=== PATIENT | male | born 1980 | race Caucasian/White ===

== ENCOUNTER 2023-04-02 11:02 | Emergency (ER) | payer OTHER ==
[2023-04-02 11:09] VITALS: RESP 18; TEMP 98.5
[2023-04-02] MEDS ORDERED: IPRATROPIUM-ALBUTEROL 3 ML NEB INHALATION STA (11:10)
--- NOTE | 2023-04-02 11:17 | ED ---
SOB HPI - General Chief Complaint: Shortness of Breath Stated Complaint: SOB Time Seen by Provider: 04/02/23 11:06 Source: patient, EMS, RN notes reviewed Mode of arrival: EMS Limitations: no limitations - History of Present Illness Initial Comments: This is a 42-year-old male who presents to the emergency department for shortness of breath. Patient is currently a resident at [facility] for alcohol abuse. States that symptoms started 10 days ago. He was treated with a Z-Maged and steroids for 5 days. He completed this course of medication about 4-5 days ago. States that he felt better initially after finishing the medications, however symptoms then returned. They have checked him for Covid several times, and all tests have been negative. He has also been receiving regular breathing treatments over the last 10 days, which have not been effective. Patient currently wearing supplemental oxygen. States that his oxygen saturation was around 89% on room air at [facility] after the breathing treatment. Denies any known sick contacts, but states that it is possible since he is around many other residents at [facility]. Denies any history of asthma or COPD. He is a smoker. Denies any fevers, chills, sore throat, chest pain, palpitations, abdominal pain, nausea, vomiting, diarrhea, back pain, or headaches. MD Complaint: shortness of breath, cough Onset/Timin -: days(s) - Related Data Home Medications Medication Instructions Recorded Confirmed Acetaminophen Tab [Tylenol] 650 mg PO Q4H PRN 04/02/23 04/02/23 Albuterol Inhaler [Ventolin Hfa 1 - 2 puff INHALATION RT-Q4H PRN 04/02/2302/18 Inhaler] Albuterol Nebulized [Ventolin 2.5 mg INHALATION RT-QID PRN 04/02/23 04/02/23 Nebulized] Calcium/Magnesium/Zinc/Vitamin D3 1 tab PO TID PRN 04/02/23 04/02/23 Chlorpheniramine Maleate 4 mg PO Q4H PRN 04/02/23 04/02/23 [Chlor-Trimeton] Hyoscyamine Sulfate [Levsin-Sl] 0.125 mg SL QID PRN 04/02/23 04/02/23 Ibuprofen [Motrin Ib] 600 mg PO Q6H PRN 04/02/23 04/02/23 Mag Hydrox/Aluminum Hyd/Simeth 30 ml PO Q4H PRN 04/02/23 04/02/23 [Mylanta Maximum Strength Liq] Multivitamins, Thera [Multivitamin 1 tab PO DAILY 04/02/23 04/02/23 (formulary)] Naltrexone Microspheres [VivitroL] 380 mg IM Q28D 04/02/23 04/02/23 Thiamine [Vitamin B-1] 100 mg PO DAILY 04/02/23 04/02/23 busPIRone HCl [Buspar] 10 mg PO TID 04/02/23 04/02/23 cloNIDine HCL 0.1 - 0.3 mg PO Q4H PRN 04/02/23 04/02/23 guaiFENesin [guaiFENesin Oral 200 mg PO Q4H PRN 04/02/23 04/02/23 Solution] ondansetron HCL [Ondansetron HCl] 8 mg PO Q6H PRN 04/02/23 04/02/23 traZODone HCL [Desyrel] 50 - 150 mg PO HS PRN 04/02/23 04/02/23 Previous Rx's Medication Instructions Recorded Amoxic-Pot Clav 875-125Mg 1 tab PO Q12HR 7 Days #14 tab 04/02/23 [Augmentin 875-125] Doxycycline [Vibramycin] 100 mg PO BID 5 Days #10 capsule 04/02/23 predniSONE 50 mg PO DAILY 5 Days #5 tablet 04/02/23 Allergies Allergy/AdvReac Type Severity Reaction Status Date / Time No Known Allergies Allergy Verified 04/02/23 12:49 Review of Systems ROS Statement: Those systems with pertinent positive or pertinent negative responses have been documented in the HPI. ROS Other: All systems not noted in ROS Statement are negative. Past Medical History Additional Past Medical History / Comment(s): asthma History of Any Multi-Drug Resistant Organisms: None Reported Additional Past Surgical History / Comment(s): wrist surgery Smoking Status: Current every day smoker Past Alcohol Use History: Occasional Past Drug Use History: None Reported General Exam Limitations: no limitations General appearance: alert, in no apparent distress Head exam: Present: atraumatic, normocephalic, normal inspection Respiratory exam: Present: wheezes, rales Cardiovascular Exam: Present: regular rate, normal rhythm, normal heart sounds. Absent: systolic murmur, diastolic murmur, rubs, gallop, clicks Neurological exam: Present: alert, oriented X3, CN II-XII intact Psychiatric exam: Present: normal affect, normal mood Skin exam: Present: warm, dry, intact, normal color. Absent: rash Course Vital Signs 04/02/23 04/02/23 04/02/23 11:05 11:10 12:29 Temperature 98.5 F Pulse Rate 73 74 Respiratory 18 18 18 Rate Blood Pressure 111/66 O2 Sat by Pulse 93 L Oximetry 04/02/23 04/02/23 12:35 13:26 Temperature Pulse Rate 78 75 Respiratory 18 18 Rate Blood Pressure 100/61 O2 Sat by Pulse 94 L Oximetry Medical Decision Making - Medical Decision Making This is a 42-year-old male who presents to the emergency department for coughing and shortness of breath. Was pt. sent in by a medical professional or institution? @ -[facility] Did you speak to anyone other than the patient for history? @ -No Did you review nursing and triage notes? @ -Yes, and I agree, it is accurate with regards to the patient's symptoms. Were old charts reviewed? @ -No Differential Diagnosis? @ -Differential Dyspnea: Coronary syndrome, arrhythmia, tamponade, asthma, COPD, pulmonary embolism, pneumonia, pneumothorax, pulmonary effusion, anaphylaxis, diabetic ketoacidosis, flailed chest, pulmonary contusion, diaphragmatic rupture, anemia, neuromuscular, this is not meant to be an all-inclusive list. EKG interpreted by me (3pts min.)? @ -EKG interpreted by me demonstrating the following: Sinus rhythm. Ventricular rate 80 beats per minute, MA interval 160 ms, QRS duration 93 ms, QTC 422 ms. X-rays interpreted by me (1pt min.)? @ -Chest x-ray obtained. My interpretation identifies a left lower lobe infiltrate. CT interpreted by me (1pt min.)? @ -Not obtained U/S interpreted by me (1pt. min.)? @ -Not obtained What testing was considered but not performed? (CT, X-rays, U/S, labs)? Why? @ -None What meds were considered but not given? Why? @ -None Did you discuss the management of the patient with other professionals? @ -No Did you reconcile home meds? @ -No Was smoking cessation discussed for >3mins.? @ -No Was critical care preformed (if so, how long)? @ -No Were there social determinants of health that impacted care today? How? (Homelessness, low income, unemployed, alcoholism, drug addiction, transportation, low edu. Level, literacy, decrease access to med. care, penitentiary, rehab)? @ -Yes, alcoholism, contributing to overall worsening of health status. Patient is also in rehab, increasing his risk for sick contacts. Was there de-escalation of care discussed even if they declined? (Discuss DNR or withdrawal of care, Hospice)? @ -No What co-morbidities impacted this encounter? (DM, HTN, Smoking, COPD, CAD, Cancer, CVA, Hep., AIDS, mental health diagnosis, sleep apnea, morbid obesity)? @ -Asthma, alcoholism Was patient admitted / discharged? @ -Discharged. Lab work obtained and found to be nonactionable. Covid, influenza, and RSV testing were negative. Chest x-ray obtained revealing a lingular infiltrate suggestive of pneumonia. Patient received a DuoNeb breathing treatment. Afterwards, I took off the supplemental oxygen, and the patient maintained an oxygen saturation of 93-96% on room air. I did offer admission for outpatient failure, however the patient declined and would like to be discharged back to [facility]. Combo therapy as recommended for community-acquired pneumonia prescribed, with Augmentin and doxycycline. Additional 5 day course of prednisone prescribed as well. Advised to continue with DuoNeb treatments and his albuterol inhaler at [facility]. Patient discharged in stable condition back to [facility]. Undiagnosed new problem with uncertain prognosis? @ -None Drug Therapy requiring intensive monitoring for toxicity (Heparin, Nitro, Insulin, Cardizem)? @ -None Were any procedures done? @ -None Diagnosis/symptom? @ -Pneumonia Acute, or Chronic, or Acute on Chronic? @ -Acute Uncomplicated (without systemic symptoms) or Complicated (systemic symptoms)? @ -Uncomplicated Side effects of treatment? @ -None Exacerbation, Progression, or Severe Exacerbation] @ -Not applicable Poses a threat to life or bodily function? @ -No Return precautions reviewed in depth, the patient is instructed to return to the emergency department with any new, worsening, or concerning symptoms. Patient verbalized understanding. This case was discussed in detail with the attending ED physician, Dr. Baez. Presentation, findings, and treatment plan discussed in detail as well. - Lab Data Result diagrams: 04/02/23 11:19 04/02/23 11:19 Lab Results 04/02/23 04/02/23 04/02/23 Range/Units 11:19 11:19 11:19 WBC 7.3 (3.8-10.6) k/uL RBC 4.76 (4.30-5.90) m/uL Hgb 14.1 (13.0-17.5) gm/dL Hct 43.1 (39.0-53.0) % MCV 90.5 (80.0-100.0) fL MCH 29.6 (25.0-35.0) pg MCHC 32.7 (31.0-37.0) g/dL RDW 15.4 (11.5-15.5) % Plt Count 268 (150-450) k/uL MPV 6.9 Neutrophils % E[employer] THRO[employer] SPECIALIST Neutrophils % (Manual) 71 % Band Neuts % (Manual) 1 % Lymphocytes % E[employer] AND THROAT SPECIALIST Lymphocytes % (Manual) 10 % Monocytes % E[employer] AND THROAT SPECIALIST Monocytes % (Manual) 17 % Eosinophils % E[employer] AND THROAT SPECIALIST Eosinophils % (Manual) 1 % Basophils % E[employer] AND THROAT SPECIALIST Basophils % (Manual) 1 % Metamyelocytes % 1 % Neutrophils # E[employer] AND THROAT SPECIALIST Neutrophils # (Manual) 5.20 (1.3-7.7) k/uL Lymphocytes # E[employer] AND THROAT SPECIALIST Lymphocytes # (Manual) 0.73 L (1.0-4.8) k/uL Monocytes # E[employer] AND THROAT SPECIALIST Monocytes # (Manual) 1.24 H (0-1.0) k/uL Eosinophils # E[employer] AND THROAT SPECIALIST Eosinophils # (Manual) 0.07 (0-0.7) k/uL Basophils # E[employer] AND THRO[employer] SPECIALIST Basophils # (Manual) 0.07 (0-0.2) k/uL Metamyelocytes # (Man) 0.07 H (0) k/uL Nucleated RBCs 0 (0-0) /100 WBC Manual Slide Review Performed RBC Morphology Normal PT 10.3 (9.0-12.0) sec INR 1.0 (<1.2) APTT 27.0 (22.0-30.0) sec D-Dimer 0.42 (<0.60) mg/L FEU Sodium 136 L (137-145) mmol/L Potassium 3.9 (3.5-5.1) mmol/L Chloride 106 (98-107) mmol/L Carbon Dioxide 22 (22-30) mmol/L Anion Gap 8 mmol/L BUN 9 (9-20) mg/dL Creatinine 0.76 (0.66-1.25) mg/dL Est GFR (CKD-EPI)AfAm >90 (>60 ml/min/1.73 sqM) Est GFR (CKD-EPI)NonAf >90 (>60 ml/min/1.73 sqM) Glucose 98 (74-99) mg/dL Plasma Lactic Acid Bonilla (0.7-2.0) mmol/L Calcium 8.6 (8.4-10.2) mg/dL Total Bilirubin 0.4 (0.2-1.3) mg/dL AST 70 H (17-59) U/L ALT 138 H (4-49) U/L Alkaline Phosphatase 443 H (38-126) U/L Troponin I (0.000-0.034) ng/mL NT-Pro-B Natriuret Pep pg/mL Total Protein 6.8 (6.3-8.2) g/dL Albumin 3.8 (3.5-5.0) g/dL Influenza Type A (PCR) (Not Detectd) Influenza Type B (PCR) (Not Detectd) RSV (PCR) (Not Detectd) SARS-CoV-2 (PCR) (Not Detectd) 04/02/23 04/02/23 04/02/23 Range/Units 11:19 11:19 11:19 WBC (3.8-10.6) k/uL RBC (4.30-5.90) m/uL Hgb (13.0-17.5) gm/dL Hct (39.0-53.0) % MCV (80.0-100.0) fL MCH (25.0-35.0) pg MCHC (31.0-37.0) g/dL RDW (11.5-15.5) % Plt Count (150-450) k/uL MPV Neutrophils % Neutrophils % (Manual) % Band Neuts % (Manual) % Lymphocytes % Lymphocytes % (Manual) % Monocytes % Monocytes % (Manual) % Eosinophils % Eosinophils % (Manual) % Basophils % Basophils % (Manual) % Metamyelocytes % % Neutrophils # Neutrophils # (Manual) (1.3-7.7) k/uL Lymphocytes # Lymphocytes # (Manual) (1.0-4.8) k/uL Monocytes # Monocytes # (Manual) (0-1.0) k/uL Eosinophils # Eosinophils # (Manual) (0-0.7) k/uL Basophils # Basophils # (Manual) (0-0.2) k/uL Metamyelocytes # (Man) (0) k/uL Nucleated RBCs (0-0) /100 WBC Manual Slide Review RBC Morphology PT (9.0-12.0) sec INR (<1.2) APTT (22.0-30.0) sec D-Dimer (<0.60) mg/L FEU Sodium (137-145) mmol/L Potassium (3.5-5.1) mmol/L Chloride (98-107) mmol/L Carbon Dioxide (22-30) mmol/L Anion Gap mmol/L BUN (9-20) mg/dL Creatinine (0.66-1.25) mg/dL Est GFR (CKD-EPI)AfAm (>60 ml/min/1.73 sqM) Est GFR (CKD-EPI)NonAf (>60 ml/min/1.73 sqM) Glucose (74-99) mg/dL Plasma Lactic Acid Bonilla 0.7 (0.7-2.0) mmol/L Calcium (8.4-10.2) mg/dL Total Bilirubin (0.2-1.3) mg/dL AST (17-59) U/L ALT (4-49) U/L Alkaline Phosphatase (38-126) U/L Troponin I <0.012 (0.000-0.034) ng/mL NT-Pro-B Natriuret Pep pg/mL Total Protein (6.3-8.2) g/dL Albumin (3.5-5.0) g/dL Influenza Type A (PCR) Not Detected (Not Detectd) Influenza Type B (PCR) Not Detected (Not Detectd) RSV (PCR) Not Detected (Not Detectd) SARS-CoV-2 (PCR) Not Detected (Not Detectd) 04/02/23 Range/Units 11:19 WBC (3.8-10.6) k/uL RBC (4.30-5.90) m/uL Hgb (13.0-17.5) gm/dL Hct (39.0-53.0) % MCV (80.0-100.0) fL MCH (25.0-35.0) pg MCHC (31.0-37.0) g/dL RDW (11.5-15.5) % Plt Count (150-450) k/uL MPV Neutrophils % Neutrophils % (Manual) % Band Neuts % (Manual) % Lymphocytes % Lymphocytes % (Manual) % Monocytes % Monocytes % (Manual) % Eosinophils % Eosinophils % (Manual) % Basophils % Basophils % (Manual) % Metamyelocytes % % Neutrophils # Neutrophils # (Manual) (1.3-7.7) k/uL Lymphocytes # Lymphocytes # (Manual) (1.0-4.8) k/uL Monocytes # Monocytes # (Manual) (0-1.0) k/uL Eosinophils # Eosinophils # (Manual) (0-0.7) k/uL Basophils # Basophils # (Manual) (0-0.2) k/uL Metamyelocytes # (Man) (0) k/uL Nucleated RBCs (0-0) /100 WBC Manual Slide Review RBC Morphology PT (9.0-12.0) sec INR (<1.2) APTT (22.0-30.0) sec D-Dimer (<0.60) mg/L FEU Sodium (137-145) mmol/L Potassium (3.5-5.1) mmol/L Chloride (98-107) mmol/L Carbon Dioxide (22-30) mmol/L Anion Gap mmol/L BUN (9-20) mg/dL Creatinine (0.66-1.25) mg/dL Est GFR (CKD-EPI)AfAm (>60 ml/min/1.73 sqM) Est GFR (CKD-EPI)NonAf (>60 ml/min/1.73 sqM) Glucose (74-99) mg/dL Plasma Lactic Acid Bonilla (0.7-2.0) mmol/L Calcium (8.4-10.2) mg/dL Total Bilirubin (0.2-1.3) mg/dL AST (17-59) U/L ALT (4-49) U/L Alkaline Phosphatase (38-126) U/L Troponin I (0.000-0.034) ng/mL NT-Pro-B Natriuret Pep <20 pg/mL Total Protein (6.3-8.2) g/dL Albumin (3.5-5.0) g/dL Influenza Type A (PCR) (Not Detectd) Influenza Type B (PCR) (Not Detectd) RSV (PCR) (Not Detectd) SARS-CoV-2 (PCR) (Not Detectd) - Radiology Data Radiology results: report reviewed, image reviewed Disposition Clinical Impression: Lingular pneumonia Disposition: HOME SELF-CARE Instructions (If sedation given, give patient instructions): Community Acquired Pneumonia (ED) Additional Instructions: Return to the emergency department with any new, worsening, or concerning symptoms. Take the prednisone daily for 5 days. You will take the Augmentin as prescribed for 7 days and doxycycline as prescribed for 5 days. Continue to use albuterol and DuoNeb treatments at [facility]. Follow up with your primary care provider in 1-2 days. Prescriptions: Amoxic-Pot Clav 875-125Mg [Augmentin 875-125] 1 tab PO Q12HR 7 Days #14 tab predniSONE 50 mg PO DAILY 5 Days #5 tablet Doxycycline [Vibramycin] 100 mg PO BID 5 Days #10 capsule Is patient prescribed a controlled substance at d/c from ED?: No Referrals: None,Stated [Primary Care Provider] - 1-2 days
[2023-04-02 11:51] LABS: HCT 43.1 % (39.0-53.0); HGB 14.1 gm/dL (13.0-17.5); MCH 29.6 pg (25.0-35.0); MCHC 32.7 g/dL (31.0-37.0); MCV 90.5 fL (80.0-100.0); Mean Platelet Volume 6.9; Platelet Count 268 k/uL (150-450); RBC 4.76 m/uL (4.30-5.90); RDW 15.4 % (11.5-15.5); WBC 7.3 k/uL (3.8-10.6)
[2023-04-02 11:57] LABS: ALT 138 U/L (4-49); AST 70 U/L (17-59); African American GFR (CKD) >90 (>60 ml/min/1.73 sqM); Albumin 3.8 g/dL (3.5-5.0); Alkaline Phosphatase 443 U/L (38-126); Anion Gap 8 mmol/L; Blood Urea Nitrogen 9 mg/dL (9-20); Calcium 8.6 mg/dL (8.4-10.2); Carbon Dioxide 22 mmol/L (22-30); Chloride 106 mmol/L (98-107); Glucose 98 mg/dL (74-99); Non-African American GFR(CKD) >90 (>60 ml/min/1.73 sqM); Potassium 3.9 mmol/L (3.5-5.1); Sodium 136 mmol/L (137-145); Total Bilirubin 0.4 mg/dL (0.2-1.3); Total Protein 6.8 g/dL (6.3-8.2)
[2023-04-02 12:00] LABS: Prothrombin Time 10.3 sec (9.0-12.0)
--- NOTE | 2023-04-02 12:04 | XR ---
EXAMINATION TYPE: XR chest 2V DATE OF EXAM: 04/02/2023 COMPARISON: NONE HISTORY: Chest pain TECHNIQUE: Frontal and lateral views of the chest are obtained. FINDINGS: There is lingular infiltrate noted. Correlate for pneumonia. No evidence for pneumothorax. No pleural effusion. The cardiac silhouette size is within normal limits. The osseous structures are grossly intact. IMPRESSION: 1. There is lingular infiltrate noted. Correlate for pneumonia.
[2023-04-02 12:54] LABS: Basophils # (M) 0.07 k/uL (0-0.2); Lymphocytes # (M) 0.73 k/uL (1.0-4.8); Neutrophils % (M) 71 %; Nucleated Red Blood Cells 0 /100 WBC (0-0)
[2023-04-02 12:56] LABS: Band Neutrophils % 1 %; Eosinophils # (M) 0.07 k/uL (0-0.7); Metamyelocytes # (M) 0.07 k/uL (0); Metamyelocytes % 1 %; Monocytes # (M) 1.24 k/uL (0-1.0); RBC Morphology Normal; Total Cells Counted 200
[2023-04-02 13:27] VITALS: BP 100/61; PULSE 75
== END 2023-04-02 13:26 | disposition home or self-care (01) ==
LOC: EC 11:02
DX: J18.8 Other pneumonia, unspecified organism (principal); J45.909 Unspecified asthma, uncomplicated; F17.200 Nicotine dependence, unspecified, uncomplicated; Z20.822 Contact with and (suspected) exposure to COVID-19; Z79.899 Other long term (current) drug therapy
CPT/HCPCS: 36415; 71046; 80053; 83605; 83880; 84484; 85025; 85379; 85610; 85730; 87636; 93005; 94640; 99285

== ENCOUNTER 2023-08-01 16:01 | Emergency (ER) | payer OTHER ==
--- NOTE | 2023-08-01 16:55 | ED ---
Abdominal Pain HPI - General Source: patient Mode of arrival: ambulatory Limitations: no limitations <Ritika Blakely - Last Filed: 08/01/23 16:54> - General Source: RN notes reviewed, old records reviewed - History of Present Illness MD Complaint: abdominal pain <Dar Barron - Last Filed: 08/01/23 21:05> - General Chief Complaint: Abdominal Pain Stated Complaint: abdo pain Time Seen by Provider: 08/01/23 16:54 - History of Present Illness Initial Comments: 42-year-old male presenting with chief complaint of left-sided upper abdominal pain ongoing for the last 3 days. Patient was seen at [facility] today and diagnosed with pancreatitis, however states that he did not want to accept that and came here. (Ritika Blakely) - Related Data Home Medications Medication Instructions Recorded Confirmed Acetaminophen Tab [Tylenol] 650 mg PO Q4H PRN 04/02/23 04/02/23 Albuterol Inhaler [Ventolin Hfa 1 - 2 puff INHALATION RT-Q4H PRN 04/02/23 04/02/23 Inhaler] Albuterol Nebulized [Ventolin 2.5 mg INHALATION RT-QID PRN 04/02/23 04/02/23 Nebulized] Calcium/Magnesium/Zinc/Vitamin D3 1 tab PO TID PRN 04/02/23 04/02/23 Chlorpheniramine Maleate 4 mg PO Q4H PRN 04/02/23 04/02/23 [Chlor-Trimeton] Hyoscyamine Sulfate [Levsin-Sl] 0.125 mg SL QID PRN 04/02/23 04/02/23 Ibuprofen [Motrin Ib] 600 mg PO Q6H PRN 04/02/23 04/02/23 Mag Hydrox/Aluminum Hyd/Simeth 30 ml PO Q4H PRN 04/02/23 04/02/23 [Mylanta Maximum Strength Liq] Multivitamins, Thera [Multivitamin 1 tab PO DAILY 04/02/23 04/02/23 (formulary)] Naltrexone Microspheres [VivitroL] 380 mg IM Q28D 04/02/23 04/02/23 Thiamine [Vitamin B-1] 100 mg PO DAILY 04/02/23 04/02/23 busPIRone HCl [Buspar] 10 mg PO TID 04/02/23 04/02/23 cloNIDine HCL 0.1 - 0.3 mg PO Q4H PRN 04/02/23 04/02/23 guaiFENesin [guaiFENesin Oral 200 mg PO Q4H PRN 04/02/23 04/02/23 Solution] ondansetron HCL [Ondansetron HCl] 8 mg PO Q6H PRN 04/02/23 04/02/23 traZODone HCL [Desyrel] 50 - 150 mg PO HS PRN 04/02/23 04/02/23 Previous Rx's Medication Instructions Recorded Amoxic-Pot Clav 875-125Mg 1 tab PO Q12HR 7 Days #14 tab 04/02/23 [Augmentin 875-125] Doxycycline [Vibramycin] 100 mg PO BID 5 Days #10 capsule 04/02/23 predniSONE 50 mg PO DAILY 5 Days #5 tablet 04/02/23 Allergies Allergy/AdvReac Type Severity Reaction Status Date / Time No Known Allergies Allergy Verified 08/01/23 16:49 Review of Systems ROS Other: All systems not noted in ROS Statement are negative. <Ritika Blakely - Last Filed: 08/01/23 16:54> ROS Other: All systems not noted in ROS Statement are negative. <Dar Barron - Last Filed: 08/01/23 21:05> ROS Statement: Those systems with pertinent positive or pertinent negative responses have been documented in the HPI. Past Medical History Additional Past Medical History / Comment(s): asthma History of Any Multi-Drug Resistant Organisms: None Reported Additional Past Surgical History / Comment(s): wrist surgery Past Psychological History: No Psychological Hx Reported Smoking Status: Current every day smoker Past Alcohol Use History: Occasional Past Drug Use History: None Reported <Ritika Blakely - Last Filed: 08/01/23 16:54> General Exam Limitations: no limitations <Ritika Blakely - Last Filed: 08/01/23 16:54> - General Exam Comments Initial Comments: Visual Physical Exam Vital signs reviewed General: Well-appearing, nontoxic, no acute distress. Head: Normocephalic, atraumatic Eyes: PERRLA, EOMI ENT: Airway patent Chest: Nonlabored breathing Skin: No visual rash, normal skin tone Neuro: Alert and oriented 3 Musculoskeletal: No gross abnormalities (Ritika Blakely) Course Vital Signs 08/01/23 08/01/23 16:46 20:10 Temperature 98.5 F Pulse Rate 106 H 73 Respiratory 18 20 Rate Blood Pressure 118/74 115/79 O2 Sat by Pulse 94 L 95 Oximetry Medical Decision Making - Lab Data Result diagrams: 08/01/23 17:23 08/01/23 17:23 <Dar Barron B - Last Filed: 08/01/23 21:05> - Lab Data Lab Results 08/01/23 08/01/23 Range/Units 17:23 17:23 WBC 4.8 (3.8-10.6) k/uL RBC 4.68 (4.30-5.90) m/uL Hgb 15.9 (13.0-17.5) gm/dL Hct 46.0 (39.0-53.0) % MCV 98.2 (80.0-100.0) fL MCH 33.9 (25.0-35.0) pg MCHC 34.5 (31.0-37.0) g/dL RDW 18.1 H (11.5-15.5) % Plt Count 155 (150-450) k/uL MPV 7.2 Neutrophils % 66 % Lymphocytes % 20 % Monocytes % 11 % Eosinophils % 1 % Basophils % 1 % Neutrophils # 3.2 (1.3-7.7) k/uL Lymphocytes # 1.0 (1.0-4.8) k/uL Monocytes # 0.5 (0-1.0) k/uL Eosinophils # 0.0 (0-0.7) k/uL Basophils # 0.0 (0-0.2) k/uL Anisocytosis Slight Macrocytosis Slight Sodium 145 (137-145) mmol/L Potassium 3.2 L (3.5-5.1) mmol/L Chloride 105 (98-107) mmol/L Carbon Dioxide 24 (22-30) mmol/L Anion Gap 16 mmol/L BUN 5 L (9-20) mg/dL Creatinine 0.66 (0.66-1.25) mg/dL Est GFR (CKD-EPI)AfAm >90 (>60 ml/min/1.73 sqM) Est GFR (CKD-EPI)NonAf >90 (>60 ml/min/1.73 sqM) Glucose 123 H (74-99) mg/dL Calcium 8.9 (8.4-10.2) mg/dL Total Bilirubin 0.7 (0.2-1.3) mg/dL AST 41 (17-59) U/L ALT 16 (4-49) U/L Alkaline Phosphatase 224 H (38-126) U/L Total Protein 7.3 (6.3-8.2) g/dL Albumin 4.2 (3.5-5.0) g/dL Amylase 66 (30-110) U/L Lipase 189 (23-300) U/L Disposition <Ritika Blakely - Last Filed: 08/01/23 16:54> Is patient prescribed a controlled substance at d/c from ED?: No Time of Disposition: 19:30 <Dar Barron - Last Filed: 08/01/23 21:05> Clinical Impression: Abdominal pain Disposition: HOME SELF-CARE Condition: Good Instructions (If sedation given, give patient instructions): Abdominal Pain ( ED) Referrals: None,Stated [Primary Care Provider] - 1-2 days
[2023-08-01 17:03] VITALS: TEMP 98.5
[2023-08-01 17:47] LABS: Anisocytosis Slight; Basophils % (A) 1 %; Eosinophils % (A) 1 %; HGB 15.9 gm/dL (13.0-17.5); Lymphocytes % (A) 20 %; MCH 33.9 pg (25.0-35.0); MCHC 34.5 g/dL (31.0-37.0); MCV 98.2 fL (80.0-100.0); Macrocytosis Slight; Mean Platelet Volume 7.2; Monocytes # (A) 0.5 k/uL (0-1.0); Monocytes % (A) 11 %; Neutrophils # (A) 3.2 k/uL (1.3-7.7); Neutrophils % (A) 66 %; Platelet Count 155 k/uL (150-450); RBC 4.68 m/uL (4.30-5.90); RDW 18.1 % (11.5-15.5); WBC 4.8 k/uL (3.8-10.6)
[2023-08-01 17:57] LABS: ALT 16 U/L (4-49); AST 41 U/L (17-59); African American GFR (CKD) >90 (>60 ml/min/1.73 sqM); Albumin 4.2 g/dL (3.5-5.0); Alkaline Phosphatase 224 U/L (38-126); Amylase 66 U/L (30-110); Anion Gap 16 mmol/L; Blood Urea Nitrogen 5 mg/dL (9-20); Calcium 8.9 mg/dL (8.4-10.2); Carbon Dioxide 24 mmol/L (22-30); Chloride 105 mmol/L (98-107); Glucose 123 mg/dL (74-99); Lipase 189 U/L (23-300); Non-African American GFR(CKD) >90 (>60 ml/min/1.73 sqM); Potassium 3.2 mmol/L (3.5-5.1); Sodium 145 mmol/L (137-145); Total Bilirubin 0.7 mg/dL (0.2-1.3); Total Protein 7.3 g/dL (6.3-8.2)
[2023-08-01] MEDS ORDERED: PROCHLORPERAZINE INJ 10 MG/2 ML VIAL IVP STA (18:25)
[2023-08-01] MEDS ORDERED: HYDROmorphone 0.5 MG/0.5 ML SYRINGE IVP STA (18:25)
--- NOTE | 2023-08-01 19:26 | CT ---
EXAMINATION TYPE: CT abdomen pelvis w con CT DLP: 716.10 mGycm, Automated exposure control for dose reduction was used. DATE OF EXAM: 08/01/2023 6:56 PM COMPARISON: None CLINICAL INDICATION:Male, 42 years old with history of pain; Pt c/o left upper abd pain x 3 days. Pt states he was dx with pancreatitis today at [facility]. TECHNIQUE: Axial CT of the ;CT abdomen pelvis w con;Sagittal and coronal reformats were created on a separate workstation. Contrast used:100ml mL of Isovue 300 with IV Contrast, (none if empty) Oral contrast used: without Oral Contrast (none if empty) FINDINGS: LOWER CHEST: Scattered airspace opacities in the left lung base. ABDOMEN LIVER: Diffusely hypoattenuating parenchyma. GALLBLADDER AND BILE DUCTS: Unremarkable. PANCREAS: No significant fat stranding around the pancreas. SPLEEN: Unremarkable. ADRENAL GLANDS: Unremarkable. KIDNEYS AND URETERS: No evidence of hydronephrosis or renal calculus. The ureters are unremarkable. PELVIS BLADDER: Unremarkable REPRODUCTIVE: Unremarkable. ABDOMEN & PELVIS STOMACH AND BOWEL: No evidence of bowel obstruction. PERITONEUM/RETROPERITONEUM: No evidence of pneumoperitoneum or free fluid. VASCULATURE: No evidence of aortic aneurysm. MUSCULOSKELETAL: No acute osseous abnormalities LYMPH NODES: No gross evidence for lymphadenopathy. SOFT TISSUE/ABDOMINAL WALL: Fat-containing umbilical hernia. IMPRESSION: 1. Left lower lung airspace opacities could relate for pneumonia. 2. The pancreas is without evidence for adjacent fat stranding. No convincing CT evidence for pancre atitis. 3. No evidence for acute intraabdominal process to explain the patient's pain. No obstructive uropat hy. The colon is within normal limits. The gastric mucosa is within normal limits. 4. Hepatic steatosis.
[2023-08-01 20:23] VITALS: BP 115/79; PULSE 73; RESP 20
== END 2023-08-01 20:12 | disposition home or self-care (01) ==
LOC: EC 16:01
DX: K76.0 Fatty (change of) liver, not elsewhere classified (principal); K85.90 Acute pancreatitis without necrosis or infection, unspecified; J18.9 Pneumonia, unspecified organism; J45.909 Unspecified asthma, uncomplicated; F17.200 Nicotine dependence, unspecified, uncomplicated; Z79.899 Other long term (current) drug therapy
CPT/HCPCS: 36415; 80053; 82150; 83690; 85025; 74177; 99284; 96374; 96375; J0780; J1170; Q9967

== ENCOUNTER 2023-08-03 12:56 | Inpatient (IN) | payer MEDICAID, OTHER ==
[2023-08-03] MEDS ORDERED: SODIUM CHLORIDE 0.9% 1,000 ML IV STA (13:22)
[2023-08-03 13:42] LABS: Anisocytosis Slight; Basophils % (A) 1 %; Eosinophils # (A) 0.1 k/uL (0-0.7); Eosinophils % (A) 3 %; HCT 45.7 % (39.0-53.0); HGB 15.6 gm/dL (13.0-17.5); Lymphocytes # (A) 0.9 k/uL (1.0-4.8); Lymphocytes % (A) 31 %; MCH 33.4 pg (25.0-35.0); MCHC 34.1 g/dL (31.0-37.0); MCV 97.9 fL (80.0-100.0); Macrocytosis Slight; Monocytes # (A) 0.3 k/uL (0-1.0); Monocytes % (A) 10 %; Neutrophils # (A) 1.5 k/uL (1.3-7.7); Neutrophils % (A) 54 %; Platelet Count 113 k/uL (150-450); RBC 4.66 m/uL (4.30-5.90); WBC 2.9 k/uL (3.8-10.6)
[2023-08-03] MEDS ORDERED: LORazepam 2 MG/ML INJ IV PRN ×2 (13:47)
[2023-08-03] MEDS ORDERED: METOCLOPRAMIDE 5 MG/ML 2 ML VIAL IVP STA (13:47)
[2023-08-03] MEDS ORDERED: THIAMINE 100 MG/ML 2 ML VIAL IM STA (13:47)
[2023-08-03] MEDS ORDERED: MORPHINE SULFATE 4 MG/ML SYRINGE IVP STA ×3 (13:47→22:23)
[2023-08-03 13:52] LABS: ALT 15 U/L (4-49); AST 43 U/L (17-59); African American GFR (CKD) >90 (>60 ml/min/1.73 sqM); Albumin 3.8 g/dL (3.5-5.0); Alkaline Phosphatase 211 U/L (38-126); Amylase 62 U/L (30-110); Anion Gap 15 mmol/L; Blood Urea Nitrogen 4 mg/dL (9-20); Calcium 8.5 mg/dL (8.4-10.2); Carbon Dioxide 23 mmol/L (22-30); Chloride 107 mmol/L (98-107); Glucose 132 mg/dL (74-99); Lipase 192 U/L (23-300); Non-African American GFR(CKD) >90 (>60 ml/min/1.73 sqM); Potassium 3.2 mmol/L (3.5-5.1); Prothrombin Time 10.5 sec (10.0-12.5); Sodium 145 mmol/L (137-145); Total Bilirubin 0.7 mg/dL (0.2-1.3)
[2023-08-03 15:21] LABS: Appearance,Urine Clear (Clear); Bilirubin,Urine Negative (Negative); Blood,Urine Small (Negative); Color,Urine Colorless; Glucose,Urine (UA) Negative (Negative); Ketones,Urine Negative (Negative); Leukocyte Esterase,Urine Negative (Negative); Mucus,Urine Rare /hpf; Nitrite,Urine Negative (Negative); Protein,Urine Trace (Negative); RBC,Urine 2 /hpf (0-5); Specific Gravity,Urine 1.009 (1.001-1.035); Urobilinogen,Urine <2.0 mg/dL (<2.0); WBC,Urine <1 /hpf (0-5)
[2023-08-03] MEDS ORDERED: POTASSIUM CHLORIDE ER 20 MEQ TAB.ER PO STA (15:35)
--- NOTE | 2023-08-03 18:28 | ED ---
General Adult HPI - General Chief complaint: Psychiatric Symptoms Stated complaint: petition Time Seen by Provider: 08/03/23 13:08 Source: patient, police, EMS, RN notes reviewed, old records reviewed Mode of arrival: EMS Limitations: no limitations - History of Present Illness Initial comments: Patient is a 42-year-old male with past medical history remarkable for alcohol abuse who presents emergency department for psychiatric evaluation. Patient was endorsing suicidal ideations over concern for abdominal pain that has been severely bad. States was so bad he felt like he wanted her bridge. Was petitioned by police for evaluation. States he has received a thorough workup for this abdominal pain, no syncope here the other day for a period workup was unremarkable. This includes CT imaging that showed no obvious acute process. He endorses somewhat nonspecific and diffuse abdominal pain. Patient apparently may be taken to senior living following evaluation and disposition. His no other acute complaints at this time. Presents for further evaluation. Patient apparently left AMA from prior admissions recently. - Related Data Previous Rx's Medication Instructions Recorded Escitalopram [Lexapro] 20 mg PO DAILY 30 Days #30 tab 08/11/23 Ibuprofen [Motrin] 600 mg PO Q6HR PRN tab 08/11/23 Naltrexone HCl [Revia] 50 mg PO DAILY 30 Days #30 tab 08/11/23 Nicotine 14Mg/24Hr Patch [Habitrol] 1 patch TRANSDERM DAILY 14 Days 08/11/23 #14 patch Nicotine Gum (Polacrilex) 2 mg BUCCAL Q4HR PRN pieceofgum 08/11/23 [Nicorette] QUEtiapine [SEROquel] 300 mg PO HS 30 Days #30 tab 08/11/23 hydrOXYzine pamoate [Vistaril] 25 mg PO BID PRN 30 Days #60 cap 08/11/23 Allergies Allergy/AdvReac Type Severity Reaction Status Date / Time No Known Allergies Allergy Verified 08/03/23 15:28 Review of Systems ROS Statement: Those systems with pertinent positive or pertinent negative responses have been documented in the HPI. Review of Systems: CONST: Denies fever EYES: Denies blurry vision ENT: Denies nasal congestion C/V: Denies Chest pain RESP: Denies shortness of breath GI: Endorses abdominal pain : Denies dysuria SKIN: Denies rash. MSK: Denies joint pain. NEURO: Denies headache PSYCH: Denies homicidal ideations/plans/attempts. Denies visual or auditory hallucinations. He endorses suicidal ideation but denies plans or attempts. ROS Other: All systems not noted in ROS Statement are negative. Past Medical History Additional Past Medical History / Comment(s): pancreatisis, asthma History of Any Multi-Drug Resistant Organisms: None Reported Additional Past Surgical History / Comment(s): wrist surgery Past Psychological History: No Psychological Hx Reported Smoking Status: Current every day smoker Past Alcohol Use History: Occasional Past Drug Use History: None Reported General Exam - General Exam Comments Initial Comments: General: Appears in no acute distress. Is acutely intoxicated with alcohol. HEAD: Normal with no signs of head trauma. EYES: PERRLA, EOMI, conjunctiva normal, no discharge. ENT: Hearing grossly intact, normal oropharynx. RESPIRATORY: Clear breath sounds bilaterally. No wheezes, rales, or rhonchi. C/V: Regular rate and rhythm. S1 and S2 auscultated, peripheral pulses 2+ and intact throughout ABD: Abdomen is soft, nondistended. Patient seems somewhat anticipatory in terms of pain, and there is no obvious focal findings on exam. Nonspecific ab dominal discomfort. No guarding. No rebound tenderness. No peritoneal signs. EXT: Normal range of motion, no obvious deformity SKIN: No rashes or lesions observed on exposed skin. NEURO: Alert and oriented 4. Limitations: no limitations Course Vital Signs 08/03/23 08/03/23 08/04/23 12:59 19:35 04:00 Temperature 97.8 F 98.3 F Pulse Rate 75 89 Respiratory 18 18 16 Rate Blood Pressure 115/73 O2 Sat by Pulse 95 98 Oximetry 08/04/23 08/04/23 08/04/23 05:27 07:00 09:59 Temperature 98.1 F 98.6 F Pulse Rate 82 68 86 Respiratory 16 20 20 Rate Blood Pressure 131/89 145/93 140/80 O2 Sat by Pulse 94 L 99 98 Oximetry 08/04/23 08/04/23 08/04/23 11:31 13:00 14:39 Temperature Pulse Rate 84 90 80 Respiratory 16 20 20 Rate Blood Pressure 142/93 118/68 124/78 O2 Sat by Pulse 98 98 98 Oximetry 08/04/23 17:00 Temperature Pulse Rate 80 Respiratory 20 Rate Blood Pressure 140/86 O2 Sat by Pulse 98 Oximetry Medical Decision Making - Medical Decision Making Was pt. sent in by a medical professional or institution ([facility], BUSINESS COMMUNICATIONS INSTRUCTOR, urgent care, hospital, or custodial...) When possible be specific @ -No Did you speak to anyone other than the patient for history (EMS, parent, family, police, friend...)? What history was obtained from this source @ -No Did you review nursing and triage notes (agree or disagree)? Why? @ -I reviewed and agree with nursing and triage notes Were old charts reviewed (outside hosp., previous admission, EMS record, old EKG, old radiological studies, urgent care reports/EKG's, custodial records)? Report findings @ -Old charts reviewed Differential Diagnosis (chest pain, altered mental status, abdominal pain women, abdominal pain men, vaginal bleeding, weakness, fever, dyspnea, syncope, headache, dizziness, GI bleed, back pain, seizure, CVA, palpatations, mental health, musculoskeletal)? @ -Differential Abdominal Pain Men: Appendicitis, cholecystitis, diverticulosis, ischemic bowel, pancreatitis, hepatitis, UTI, gastroenteritis, AAA, incarcerated hernia, bowel obstruction, constipation, inflammatory bowel, hepatitis, peptic ulcer disease, splenic infarction, perforated viscus, testicular torsion, this is not meant to be an all-inclusive list Differential Mental Health Depression, anxiety, bipolar, psychosis, schizophrenia, borderline personality, situational depression, adjustment disorder, behavioral disorder, brain tumor, m alingering, substance abuse, encephalopathy, medication reaction, dementia, hypothyroidism, degenerative neurologic disorder, lupus.... This is not meant to be all-inclusive list EKG interpreted by me (3pts min.). @ -As above X-rays interpreted by me (1pt min.). @ -None done CT interpreted by me (1pt min.). @ -None done U/S interpreted by me (1pt. min.). @ -None done What testing was considered but not performed or refused? (CT, X-rays, U/S, labs)? Why? @ -Considered imaging however CT imaging as just obtained 2 days ago. No change in symptoms. What meds were considered but not given or refused? Why? @ -None Did you discuss the management of the patient with other professionals (professionals i.e. , SAE, BUSINESS COMMUNICATIONS INSTRUCTOR, lab, RT, psych nurse, social worker masters, hog operator, teacher, catapult and arresting gear officer, case packer)? Give summary @ -EPS notified to consult when patient is sober. Was smoking cessation discussed for >3mins.? @ -No Was critical care preformed (if so, how long)? @ -No Were there social determinants of health that impacted care today? How? (Homelessness, low income, unemployed, alcoholism, drug addiction, transportation, low edu. Level, literacy, decrease access to med. care, senior living, rehab)? @ -No Was there de-escalation of care discussed even if they declined (Discuss DNR or withdrawal of care, Hospice)? DNR status @ -No What co-morbidities impacted this encounter? (DM, HTN, Smoking, COPD, CAD, Cancer, CVA, ARF, Chemo, Hep., AIDS, mental health diagnosis, sleep apnea, morbid obesity)? @ -None Was patient admitted / discharged? Hospital course, mention meds given and route, prescriptions, significant lab abnormalities, going to OR and other pertinent info. @ -Based on the patient's presentation and physical exam, presents with chronic abdominal pain which has been thoroughly worked up recently and multiple hospitals as well as suicidal ideations. Patient was petitioned by police. Vi rosa signs within acceptable limits. Complaining of his typical generalized abdominal pain. Keeps asking for morphine. His acutely intoxicated with alcohol. Vital signs within acceptable limits. Exam unremarkable. We'll repeat laboratory studies but I do not believe that CT imaging is required at this time as he had recent CT 2 days ago that was unremarkable. He was in agreement this plan. Patient's labs are remarkable for mild leukopenia of 2.9 but otherwise within acceptable limits other than hypokalemia which was replenished. BAT is elevated to 0.235. UDS is pending. Patient was given analgesia medications for his pain. He has been eating sandwiches, chips, pop without issue. Patient may be pain seeking. Has no other complaints at this time. Patient will be evaluated by psychiatry when sober. EPS notified of the consult. Patient is medically cleared for evaluation by psychiatry. Patient eventually admitted to inpatient psychiatry. Undiagnosed new problem with uncertain prognosis? @ -No Drug Therapy requiring intensive monitoring for toxicity (Heparin, Nitro, Insulin, Cardizem)? @ -No Were any procedures done? @ -No Diagnosis/symptom? @ -Chronic abdominal pain, alcohol intoxication Acute, or Chronic, or Acute on Chronic? @ -Chronic Uncomplicated (without systemic symptoms) or Complicated (systemic symptoms)? @ -Uncomplicated Side effects of treatment? @ -No Exacerbation, Progression, or Severe Exacerbation? @ -No Poses a threat to life or bodily function? How? (Chest pain, [place], [place], pneumonia, PE, COPD, DKA, ARF, appy, cholecystitis, CVA, Diverticulitis, Homicidal, Suicidal, threat to staff... and all critical care pts) @ -No Diagnosis/symptom? @ -Encounter for psychiatric evaluation, suicidal ideation Acute, or Chronic, or Acute on Chronic? @ -Acute Uncomplicated (without systemic symptoms) or Complicated (systemic symptoms)? @ -Uncomplicated Side effects of treatment? @ -none Exacerbation, Progression, or Severe Exacerbation] @ -no Poses a threat to life or bodily function? @ -Yes - Lab Data Result diagrams: 08/03/23 13:30 08/03/23 13:30 Lab Results 08/03/23 08/03/23 08/03/23 Range/Units 13:30 13:30 13:30 WBC 2.9 L (3.8-10.6) k/uL RBC 4.66 (4.30-5.90) m/uL Hgb 15.6 (13.0-17.5) gm/dL Hct 45.7 (39.0-53.0) % MCV 97.9 (80.0-100.0) fL MCH 33.4 (25.0-35.0) pg MCHC 34.1 (31.0-37.0) g/dL RDW 18.0 H (11.5-15.5) % Plt Count 113 L (150-450) k/uL MPV 7.0 Neutrophils % 54 % Lymphocytes % 31 % Monocytes % 10 % Eosinophils % 3 % Basophils % 1 % Neutrophils # 1.5 (1.3-7.7) k/uL Lymphocytes # 0.9 L (1.0-4.8) k/uL Monocytes # 0.3 (0-1.0) k/uL Eosinophils # 0.1 (0-0.7) k/uL Basophils # 0.0 (0-0.2) k/uL Anisocytosis Slight Macrocytosis Slight PT 10.5 (10.0-12.5) sec INR 1.0 (<1.2) APTT 27.0 (22.0-30.0) sec Sodium 145 (137-145) mmol/L Potassium 3.2 L (3.5-5.1) mmol/L Chloride 107 (98-107) mmol/L Carbon Dioxide 23 (22-30) mmol/L Anion Gap 15 mmol/L BUN 4 L (9-20) mg/dL Creatinine 0.60 L (0.66-1.25) mg/dL Est GFR (CKD-EPI)AfAm >90 (>60 ml/min/1.73 sqM) Est GFR (CKD-EPI)NonAf >90 (>60 ml/min/1.73 sqM) Glucose 132 H (74-99) mg/dL Calcium 8.5 (8.4-10.2) mg/dL Total Bilirubin 0.7 (0.2-1.3) mg/dL AST 43 (17-59) U/L ALT 15 (4-49) U/L Alkaline Phosphatase 211 H (38-126) U/L Total Protein 7.0 (6.3-8.2) g/dL Albumin 3.8 (3.5-5.0) g/dL Amylase 62 (30-110) U/L Lipase 192 (23-300) U/L Urine Color Urine Appearance (Clear) Urine pH (5.0-8.0) Ur Specific [place] (1.001-1.035) Urine Protein (Negative) Urine Glucose (UA) (Negative) Urine Ketones (Negative) Urine Blood (Negative) Urine Nitrite (Negative) Urine Bilirubin (Negative) Urine Urobilinogen (<2.0) mg/dL Ur Leukocyte Esterase (Negative) Urine RBC (0-5) /hpf Urine WBC (0-5) /hpf Urine Mucus (None) /hpf Urine Opiates Screen (Negative) Urine Methadone Screen (Negative) Ur Propoxyphene Screen (Negative) Urine Barbiturates (Negative) Ur Phencyclidine Scrn (Negative) Ur Amphetamine Screen (Negative) U Benzodiazepines Scrn (Negative) Urine Cocaine Screen (Negative) U Cannabinoids Screen (Negative) Urine Alcohol (Negative) Coronavirus (PCR) (Not Detectd) 08/03/23 08/03/23 08/04/23 Range/Units 13:30 13:30 17:23 WBC (3.8-10.6) k/uL RBC (4.30-5.90) m/uL Hgb (13.0-17.5) gm/dL Hct (39.0-53.0) % MCV (80.0-100.0) fL MCH (25.0-35.0) pg MCHC (31.0-37.0) g/dL RDW (11.5-15.5) % Plt Count (150-450) k/uL MPV Neutrophils % % Lymphocytes % % Monocytes % % Eosinophils % % Basophils % % Neutrophils # (1.3-7.7) k/uL Lymphocytes # (1.0-4.8) k/uL Monocytes # (0-1.0) k/uL Eosinophils # (0-0.7) k/uL Basophils # (0-0.2) k/uL Anisocytosis Macrocytosis PT (10.0-12.5) sec INR (<1.2) APTT (22.0-30.0) sec Sodium (137-145) mmol/L Potassium (3.5-5.1) mmol/L Chloride (98-107) mmol/L Carbon Dioxide (22-30) mmol/L Anion Gap mmol/L BUN (9-20) mg/dL Creatinine (0.66-1.25) mg/dL Est GFR (CKD-EPI)AfAm (>60 ml/min/1.73 sqM) Est GFR (CKD-EPI)NonAf (>60 ml/min/1.73 sqM) Glucose (74-99) mg/dL Calcium (8.4-10.2) mg/dL Total Bilirubin (0.2-1.3) mg/dL AST (17-59) U/L ALT (4-49) U/L Alkaline Phosphatase (38-126) U/L Total Protein (6.3-8.2) g/dL Albumin (3.5-5.0) g/dL Amylase (30-110) U/L Lipase (23-300) U/L Urine Color Colorless Urine Appearance Clear (Clear) Urine pH 7.0 (5.0-8.0) Ur Specific [place] 1.009 (1.001-1.035) Urine Protein Trace H (Negative) Urine Glucose (UA) Negative (Negative) Urine Ketones Negative (Negative) Urine Blood Small H (Negative) Urine Nitrite Negative (Negative) Urine Bilirubin Negative (Negative) Urine Urobilinogen <2.0 (<2.0) mg/dL Ur Leukocyte Esterase Negative (Negative) Urine RBC 2 (0-5) /hpf Urine WBC <1 (0-5) /hpf Urine Mucus Rare H (None) /hpf Urine Opiates Screen Negative (Negative) Urine Methadone Screen Negative (Negative) Ur Propoxyphene Screen Negative (Negative) Urine Barbiturates Negative (Negative) Ur Phencyclidine Scrn Negative (Negative) Ur Amphetamine Screen Negative (Negative) U Benzodiazepines Scrn Negative (Negative) Urine Cocaine Screen Negative (Negative) U Cannabinoids Screen Negative (Negative) Urine Alcohol Positive A (Negative) Coronavirus (PCR) Not Detected (Not Detectd) - EKG Data -: EKG Interpreted by Me EKG Comments: 12-lead Electrocardiogram Interpretation Note EKG was reviewed and interpreted by myself. 12-lead ECG performed at 1331 is interpreted by me as revealing normal sinus rhythm at a rate of 73 beats per minute. Tama is normal. VT interval is 159 ms, QRS duration is 106 ms, QTc is 393 ms.. There were no ST or T wave abnormalities to suggest myocardial is chemia or injury. R wave progression across the precordium was satisfactory. By my interpretation this EKG is non-diagnostic for acute ischemia. Disposition Clinical Impression: Chronic abdominal pain, Alcohol intoxication, Encounter for psychiatric assessment, Suicidal ideation Disposition: ADMITTED IP TO THIS HOSP Condition: Stable
[2023-08-03] MEDS ORDERED: Acetaminophen-Codeine 300-30mg TAB PO STA (19:47)
[2023-08-03] MEDS ORDERED: IBUPROFEN 400 MG TAB PO PRN (19:48)
[2023-08-03] MEDS ORDERED: LORazepam 0.5 MG TAB PO STA (19:50)
[2023-08-03] MEDS ORDERED: MAG HYDROX/AL HYDROX/SIMETH 30 ML CUP PO PRN (19:54)
[2023-08-04] MEDS: LORazepam 2 MG/ML INJ IV PRN ×4 (01:56→19:37)
[2023-08-04] MEDS ORDERED: THIAMINE 100 MG TAB PO SCH (09:00)
[2023-08-04] MEDS ORDERED: NICOTINE 21MG/24HR PATCH TRANSDERM STA (14:59)
[2023-08-04] MEDS ORDERED: LORazepam 1 MG TAB PO PRN ×3 (20:59)
[2023-08-04] MEDS ORDERED: MAGNESIUM HYDROXIDE 2,400 MG/30 ML CUP PO PRN (20:59)
[2023-08-04] MEDS ORDERED: NICOTINE GUM (POLACRILEX) 2 MG GUM BUCCAL PRN (21:02)
[2023-08-04] MEDS: IBUPROFEN 600 MG TAB PO PRN (21:13)
[2023-08-05] MEDS: LORazepam 2 MG/ML INJ IM PRN (03:05)
[2023-08-05] MEDS: NICOTINE 14MG/24HR PATCH TRANSDERM SCH (09:31)
[2023-08-05] MEDS: MAG HYDROX/AL HYDROX/SIMETH 30 ML CUP PO PRN ×2 (09:33→17:11)
[2023-08-05] MEDS: ACETAMINOPHEN TAB 325 MG TAB PO PRN (09:33)
[2023-08-05] MEDS ORDERED: LORazepam 1 MG TAB PO PRN (11:34)
[2023-08-05 11:35] LABS: Urine Alcohol Positive (Negative); Urine Barbiturate Negative (Negative); Urine Cocaine Negative (Negative); Urine Methadone Negative (Negative); Urine Opiates Negative (Negative); Urine Phencyclidine Negative (Negative)
[2023-08-05] MEDS: ESCITALOPRAM 5 MG TAB PO SCH (12:06)
[2023-08-05] MEDS: NALTREXONE HCL 50 MG TAB PO SCH (12:06)
[2023-08-05] MEDS: IBUPROFEN 600 MG TAB PO PRN ×2 (12:06→19:45)
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
[2023-08-05 14:24] VITALS: BMI 25.7
[2023-08-05] MEDS ORDERED: traZODone HCL 50 MG TAB PO SCH (21:00)
[2023-08-06] MEDS: NICOTINE 14MG/24HR PATCH TRANSDERM SCH (08:00)
[2023-08-06] MEDS: ESCITALOPRAM 5 MG TAB PO SCH (08:01)
[2023-08-06] MEDS: NALTREXONE HCL 50 MG TAB PO SCH (08:01)
[2023-08-06] MEDS: IBUPROFEN 600 MG TAB PO PRN ×2 (08:02→15:00)
--- NOTE | 2023-08-06 10:12 | P.PN ---
Progress Note - Text Progress Note Date: 08/06/23 Interval history: Patient was seen today laying in his bed and was agreeable to speech with [facility]. Patient states that he was "hallucinating" and having a conversation with someone earlier. He claims that this is only started about a few days ago. He appeared to be fairly disinterested in the conversation. Continues to endorse some depression and anxiety. At this time he is denying any suicidal or homicidal ideations intent or plan. Denying any visual hallucinations. Claims that he has been going only some groups, continues to be mainly withdrawn on the unit. Denies any changes in his appetite. He has been taking his medications, not reporting any side effects. MENTAL STATUS EXAM: General Appearance: Patient appears to be short in stature, holding his abdomen, stated age is alert, manipulative and focused on pain. Patient appears to have poor hygiene and grooming. Behavior: Patient is seated without any agitated behavior. Manipulative, medication focused Speech: Patient's speech is fluent and nonpressured. [place] Mood/Affect: Patient reports their mood is depressed and anxious, improving mildly, affect is congruent and constricted. Suicidality/Homicidality: Patient denies having any homicidal ideation intent or plan. Denies any current suicidal ideations intent or plan Perceptions: Patient denies any visual hallucinations and denies any auditory hallucinations Though content/process: There is no evidence of any delusional thought content and thought process is linear and goal-directed. Memory and concentration: AOX3, grossly intact for the purposes of this session. Judgment and insight: poor/manipulative, improving mildly IMPRESSIONS: Depressive disorder unspecified Personality disorder unspecified Alcohol use disorder severe dependence Nicotine dependence Homelessness PLAN: -Patient is admitted under voluntary status to MHU for stabilization of psychiatric symptoms and safety. Patient has not signed adult voluntary form and and is placed in patient's chart. -Medications : Increase Lexapro 10 mg daily for mood/anxiety, d/c trazodone, replace with seroquel 50 mg qhs for insomnia/psychosis/mood adjunct. naltrexone by mouth 50 mg daily for alcohol cravings. Scheduled Librium for alcohol withdrawal, we'll continue to decrease every day until tapered off. -Ativan and Haldol PRN for agitation/aggression -thiamine, MVM for etoh use -d/c CIWA protocol and decrease frequency of ativan prn -NRT - nicotine patch -SW on board for discharge planning. Encourage patient to participate in groups to work on coping skills. patient is refusing rehab at this time.
[2023-08-06] MEDS: MAG HYDROX/AL HYDROX/SIMETH 30 ML CUP PO PRN (15:01)
[2023-08-06] MEDS ORDERED: QUEtiapine 50 MG TAB PO SCH (21:00)
--- NOTE | 2023-08-06 23:10 | CONS ---
CONSULTATION CHIEF COMPLAINT: Major depression. HISTORY OF PRESENT ILLNESS: This is another admission for this 42-year-old gentleman. He presented to the emergency room with depression and was admitted. REVIEW OF SYSTEMS: Cannot be obtained because he is lethargic and cannot be aroused at this time. He is not allergic to any medication and has apparently not been on any. PHYSICAL EXAMINATION: VITAL SIGNS: Normal. HEAD, EARS, EYES, NOSE, MOUTH AND THROAT: Seem to be normal. CHEST: Breath sounds are heard bilaterally. CARDIAC: Sinus. ABDOMEN: Soft. EXTREMITIES: Normal. IMPRESSION: Major depression. RECOMMENDATIONS: None. MMODL / IJN: [id number] /
[2023-08-06] MEDS: LORazepam 2 MG/ML INJ IM PRN (23:57)
[2023-08-07] MEDS: NICOTINE 14MG/24HR PATCH TRANSDERM SCH (08:22)
[2023-08-07] MEDS: ESCITALOPRAM 10 MG TAB PO SCH (08:22)
[2023-08-07] MEDS: NALTREXONE HCL 50 MG TAB PO SCH (08:22)
[2023-08-07] MEDS: IBUPROFEN 600 MG TAB PO PRN ×3 (09:51→22:53)
--- NOTE | 2023-08-07 12:03 | P.PN ---
Progress Note - Text Progress Note Date: 08/07/23 Interval history: Patient was seen today participating in group and interacting with other people on the unit. He states that he is doing a bit better today. Claims that he was hallucinating yesterday however since taking the Seroquel it has been a bit better. He claims that he did have a visual illusion of the painting on the wall and described his in detail. He claims that the Seroquel did have a different feeling for him last night and he states that he did have a nightmare however claims that he did not know if it was from the Seroquel or from keeping nicotine patch on. Claims that he feels medications have been helping with his mood and anxiety. At this time he is denying any suicidal or homicidal ideations intent or plan. Denying any visual hallucinations. Denies any changes in his appetite. He has been taking his medications, not reporting any side effects. MENTAL STATUS EXAM: General Appearance: Patient appears to be short in stature, holding his abdomen, stated age is alert, manipulative and focused on pain. Patient appears to have improving hygiene and grooming. Behavior: Patient is seated without any agitated behavior. Last manipulative today. Speech: Patient's speech is fluent and nonpressured. [place], improving Mood/Affect: Patient reports their mood is depressed and anxious, improving mildly, affect is congruent Suicidality/Homicidality: Patient denies having any homicidal ideation intent or plan. Denies any current suicidal ideations intent or plan Perceptions: Patient denies any visual hallucinations and denies any auditory hallucinations Though content/process: There is no evidence of any delusional thought content and thought process is linear and goal-directed. Memory and concentration: AOX3, grossly intact for the purposes of this session. Judgment and insight: poor, improving mildly IMPRESSIONS: Depressive disorder unspecified Alcohol use disorder severe dependence Nicotine dependence Homelessness PLAN: -Patient is admitted under voluntary status to MHU for stabilization of psychiatric symptoms and safety. Patient has not signed adult voluntary form and and is placed in patient's chart. -Medications : Lexapro 10 mg daily for mood/anxiety, increase seroquel 100 mg qhs for insomnia/psychosis/mood adjunct. naltrexone by mouth 50 mg daily for alcohol cravings. Scheduled Librium for alcohol withdrawal, we'll continue to decrease every day until tapered off. -Ativan and Haldol PRN for agitation/aggression -thiamine, MVM for etoh use -d/c CIWA protocol and decrease frequency of ativan prn -NRT - nicotine patch -SW on board for discharge planning. Encourage patient to participate in groups to work on coping skills. patient is refusing rehab at this time. likely discharge early next week back to his friends house.
[2023-08-07] MEDS: LORazepam 1 MG TAB PO PRN (17:38)
[2023-08-07] MEDS: QUEtiapine 100 MG TAB PO SCH (21:01)
[2023-08-07] MEDS: LORazepam 2 MG/ML INJ IM PRN (21:12)
[2023-08-07] MEDS: ACETAMINOPHEN TAB 325 MG TAB PO PRN (22:54)
[2023-08-08] MEDS: NICOTINE 14MG/24HR PATCH TRANSDERM SCH (08:51)
[2023-08-08] MEDS: IBUPROFEN 600 MG TAB PO PRN ×3 (08:52→20:58)
[2023-08-08] MEDS: NALTREXONE HCL 50 MG TAB PO SCH (08:53)
[2023-08-08] MEDS: ESCITALOPRAM 10 MG TAB PO SCH (08:53)
[2023-08-08] MEDS: LORazepam 1 MG TAB PO PRN ×2 (11:44→20:44)
--- NOTE | 2023-08-08 13:52 | P.PN ---
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 He states that he is doing a bit better today and claims that the medications have started work for him. He states that his mood has been improving however still claims that he does have some anxiety during the day. We spoke about Ativan as an option however also to try Vistaril when necessary over the weekend if needed for anxiety. He claims that he is feeling more positive and wants to stay sober from alcohol as much as he can once he is discharged. We spoke about coping skills as well. Things that he is sleeping a bit better nighttime. If his appetite is fair. Has been trying to go to groups. At this time he is denying any suicidal or homicidal ideations intent or plan. Denying any visual hallucinations. Denies any changes in his appetite. He has been taking his medications, not reporting any side effects. MENTAL STATUS EXAM: General Appearance: Patient appears to be short in stature, holding his abdomen, stated age is alert, manipulative and focused on pain. Patient appears to have improving hygiene and grooming. Behavior: Patient is seated without any agitated behavior. More cooperative today Speech: Patient's speech is fluent and nonpressured. [place], improving Mood/Affect: Patient reports their mood is mainly just anxious, improving mildly, affect is congruent improving Suicidality/Homicidality: Patient denies having any homicidal ideation intent or plan. Denies any current suicidal ideations intent or plan Perceptions: Patient denies any visual hallucinations and denies any auditory hallucinations Though content/process: There is no evidence of any delusional thought content and thought process is linear and goal-directed. Memory and concentration: AOX3, grossly intact for the purposes of this session. Judgment and insight: improving mildly IMPRESSIONS: Depressive disorder unspecified Alcohol use disorder severe dependence Nicotine dependence Homelessness PLAN: -Patient is admitted under voluntary status to MHU for stabilization of psychiatric symptoms and safety. Patient has not signed adult voluntary form and and is placed in patient's chart. -Medications : Lexapro 10 mg daily for mood/anxiety, seroquel 100 mg qhs for insomnia/psychosis/mood adjunct. naltrexone by mouth 50 mg daily for alcohol cravings, patient sttaes that he would interested in receiving the vivitrol injection upon discharge. Scheduled Librium for alcohol withdrawal, we'll continue to taper off and will be discontinued by tomorrow morning. I did Vistaril when necessary for anxiety. -Ativan and Haldol PRN for agitation/aggression -thiamine, MVM for etoh use -NRT - nicotine patch -SW on board for discharge planning. Encourage patient to participate in groups to work on coping skills. patient is refusing rehab at this time. likely discharge Friday back to his friends house.
[2023-08-08] MEDS: hydrOXYzine pamoate 25 MG CAP PO PRN (14:53)
[2023-08-08] MEDS: QUEtiapine 100 MG TAB PO SCH (20:42)
[2023-08-08] MEDS: LORazepam 2 MG/ML INJ IM PRN (23:03)
[2023-08-09] MEDS: ESCITALOPRAM 10 MG TAB PO SCH (08:44)
[2023-08-09] MEDS: NALTREXONE HCL 50 MG TAB PO SCH (08:44)
[2023-08-09] MEDS: NICOTINE 14MG/24HR PATCH TRANSDERM SCH (08:44)
[2023-08-09] MEDS: IBUPROFEN 600 MG TAB PO PRN ×3 (08:45→20:41)
[2023-08-09 08:58] VITALS: RESP 16
--- NOTE | 2023-08-09 10:23 | P.PN ---
Subjective Progress Note Date: 08/09/23 Principal diagnosis: IMPRESSIONS: Depressive disorder unspecified Alcohol use disorder severe dependence Nicotine dependence Homelessness Interval history: Patient was seen today. He was sleeping in his room. He took 100 Seroquel but 8:30 last night and still couldn't get to bed until fairly late he also is quite anxious and then given extra Ativan. He doesn't like to use Ativan because he knows is an alcoholic and the 2 don't mix well He states that his mood has been improving however still claims that he does have significant anxiety during the day. We spoke about Ativan as an option however also to try Vistaril when necessary over the weekend if needed for a nxiety. He claims that he is feeling more positive and wants to stay sober from alcohol as much as he can once he is discharged. He does have a sponsor while the problems as he won't have a phone when his discharge as compared from the call her sponsor. He also has family and friends he can stay with and an AA group he is part of and a friend will give him rides to and from the meeting. His appetite is fair. Has been trying to go to groups. At this time he is denying any suicidal or homicidal ideations intent or plan. Denying any visual hallucinations. Denies any changes in his appetite. He has been taking his medications, not reporting any side effects. MENTAL STATUS EXAM: General Appearance: Patient appears to be short in stature, holding his abdomen, stated age is alert, manipulative and focused on pain. Patient appears to have improving hygiene and grooming. Behavior: Patient is seated without any agitated behavior. More cooperative today Speech: Patient's speech is fluent and nonpressured. [place], improving Mood/Affect: Patient reports their mood is mainly just anxious, improving mildly, affect is serious and somewhat anxious Suicidality/Homicidality: Patient denies having any homicidal ideation intent or plan. Denies any current suicidal ideations intent or plan Perceptions: Patient denies any visual hallucinations and denies any auditory hallucinations Though content/process: There is no evidence of any delusional thought content and thought process is linear and goal-directed. Memory and concentration: AOX3, grossly intact for the purposes of this session. Judgment and insight: improving mildly IMPRESSIONS: Depressive disorder unspecified Alcohol use disorder severe dependence Nicotine dependence Homelessness PLAN: Course he needs to work on post discharge plan. The Lexapro was not likely do anything for a couple weeks I think we need to increase his Seroquel he should not be using all that Ativan. When increase Seroquel to 200 tonight and 300 tomorrow as indicated and he is going to try to use Vistaril -Patient is admitted under voluntary status to MHU for stabilization of psychiatric symptoms and safety. Patient has not signed adult voluntary form and and is placed in patient's chart. -Medications : Lexapro 10 mg daily for mood/anxiety, seroquel 100 mg qhs for insomnia/psychosis/mood adjunct. naltrexone by mouth 50 mg daily for alcohol cravings, patient sttaes that he would interested in receiving the vivitrol injection upon discharge. Scheduled Librium for alcohol withdrawal, we'll continue to taper off and will be discontinued by tomorrow morning. I did Vistaril when necessary for anxiety. -Ativan and Haldol PRN for agitation/aggression -thiamine, MVM for etoh use -NRT - nicotine patch -SW on board for discharge planning. Encourage patient to participate in groups to work on coping skills. patient is refusing rehab at this time. likely discharge Friday back to his friends house. Objective - Vital Signs Vital signs: Vital Signs Temp 97.9 F 08/08/23 06:41 Pulse 77 08/09/23 08:49 Resp 16 08/09/23 08:49 BP 94/57 08/09/23 08:49 Pulse Ox 94 L 08/05/23 09:36 FiO2 Intake & Output 08/08/23 08/09/23 08/09/23 18:59 06:59 18:59 Weight 79.1 kg - Labs CBC & Chem 7: 08/03/23 13:30 08/03/23 13:30
[2023-08-09] MEDS: hydrOXYzine pamoate 25 MG CAP PO PRN (10:25)
[2023-08-09] MEDS: LORazepam 1 MG TAB PO PRN ×2 (12:15→20:41)
[2023-08-09] MEDS ORDERED: QUEtiapine 200 MG TAB PO SCH (21:00)
[2023-08-10] MEDS: IBUPROFEN 600 MG TAB PO PRN ×2 (09:02→20:10)
[2023-08-10] MEDS: ESCITALOPRAM 10 MG TAB PO SCH (09:03)
[2023-08-10] MEDS: NALTREXONE HCL 50 MG TAB PO SCH (09:03)
[2023-08-10] MEDS: NICOTINE 14MG/24HR PATCH TRANSDERM SCH (09:03)
[2023-08-10] MEDS: LORazepam 1 MG TAB PO PRN ×2 (12:39→20:44)
--- NOTE | 2023-08-10 12:39 | P.PN ---
Subjective Progress Note Date: 08/10/23 Principal diagnosis: IMPRESSIONS: Depressive disorder unspecified Alcohol use disorder severe dependence Nicotine dependence Homelessness Interval history: Patient was seen today. He was sleeping in his room. He took 100 Seroquel but 8:30 last night and still couldn't get to bed until fairly late he also is quite anxious and then given extra Ativan. He doesn't like to use Ativan because he knows is an alcoholic and the 2 don't mix well He states that his mood has been improving however still claims that he does have significant anxiety during the day. We spoke about Ativan as an option however also to try Vistaril when necessary over the weekend if needed for a nxiety. He claims that he is feeling more positive and wants to stay sober from alcohol as much as he can once he is discharged. He does have a sponsor while the problems as he won't have a phone when his discharge as compared from the call her sponsor. He also has family and friends he can stay with and an AA group he is part of and a friend will give him rides to and from the meeting. His appetite is fair. Has been trying to go to groups. At this time he is denying any suicidal or homicidal ideations intent or plan. Denying any visual hallucinations. Denies any changes in his appetite. He has been taking his medications, not reporting any side effects. MENTAL STATUS EXAM: General Appearance: Patient appears to be short in stature, holding his abdomen, stated age is alert, manipulative and focused on pain. Patient appears to have improving hygiene and grooming. Behavior: Patient is seated without any agitated behavior. More cooperative today Speech: Patient's speech is fluent and nonpressured. [place], improving Mood/Affect: Patient reports their mood is mainly just anxious, improving mildly, affect is serious and somewhat anxious Suicidality/Homicidality: Patient denies having any homicidal ideation intent or plan. Denies any current suicidal ideations intent or plan Perceptions: Patient denies any visual hallucinations and denies any auditory hallucinations Though content/process: There is no evidence of any delusional thought content and thought process is linear and goal-directed. Memory and concentration: AOX3, grossly intact for the purposes of this session. Judgment and insight: improving mildly IMPRESSIONS: Depressive disorder unspecified Alcohol use disorder severe dependence Nicotine dependence Homelessness PLAN: Course he needs to work on post discharge plan. The Lexapro was not likely do anything for a couple weeks I think we need to increase his Seroquel further to 300 mg to help with burn out sleep and calmness and increase the Vistaril 200 mg each time is a 50 did no good. -Patient is admitted under voluntary status to MHU for stabilization of psychiatric symptoms and safety. Patient has not signed adult voluntary form and and is placed in patient's chart. -Medications : Increase Lexapro 20 mg daily for mood/anxiety. naltrexone by mouth 50 mg daily for alcohol cravings, patient sttaes that he would interested in receiving the vivitrol injection upon discharge. I did Vistaril when necessary for anxiety. -Ativan and Haldol PRN for agitation/aggression -thiamine, MVM for etoh use -NRT - nicotine patch -SW on board for discharge planning. Encourage patient to participate in groups to work on coping skills. patient is refusing rehab at this time. likely discharge Friday back to his friends house. Objective - Vital Signs Vital signs: Vital Signs Temp 97.5 F L 08/09/23 10:15 Pulse 80 08/10/23 09:05 Resp 16 08/09/23 10:15 BP 90/58 08/10/23 09:05 Pulse Ox 96 08/09/23 10:15 FiO2 - Labs CBC & Chem 7: 08/03/23 13:30 08/03/23 13:30
[2023-08-10] MEDS: hydrOXYzine pamoate 25 MG CAP PO PRN (18:46)
[2023-08-10] MEDS ORDERED: QUEtiapine 100 MG TAB PO SCH (21:00)
[2023-08-11] MEDS: NICOTINE 14MG/24HR PATCH TRANSDERM SCH (08:07)
[2023-08-11] MEDS: NALTREXONE HCL 50 MG TAB PO SCH (08:07)
[2023-08-11 08:11] VITALS: PULSE 85; TEMP 98.7
[2023-08-11] MEDS ORDERED: ESCITALOPRAM 20 MG TAB PO SCH (09:00)
[2023-08-11] MEDS: ACETAMINOPHEN TAB 325 MG TAB PO PRN (09:01)
--- NOTE | 2023-08-11 10:22 | P.DS ---
Providers Date of admission: 08/04/23 19:25 Expected date of discharge: 08/11/23 Attending physician: Rommel Ramirez MD Consults: 08/04/23 20:59 Consult Physician Routine Consulting Provider: Gabriel Weaver Consult Reason/Comments: H&P and medical Do you want consulting provider notified?: Yes Primary care physician: Gabriel Weaver - Discharge Diagnosis(es) (1) Depressive disorder Current Visit: Yes Status: Acute Priority: High (2) Alcohol use disorder Current Visit: Yes Status: Acute Priority: High (3) Nicotine dependence Current Visit: Yes Status: Acute Priority: Low Hospital Course: Admission HPI: Admission note was completed by publications writer "Patient is a 42-year-old male, currently homeless, is single he has 2 kids, he is unemployed. Patient presented to the hospital on 08/03 apparently on a petition by the police claiming the patient was suicidal and wanted to either jump in front of a truck or bus or [place]. Patient was also complaining of alcohol abuse in the ER, abdominal pain. Patient was worked up for the abdominal pain and lipase was negative, computed tomography scan of his abdomen and pelvis did not show any acute changes or evidence of pancreatitis. Patient was admitted involuntarily to the mental health unit. He was seen today near the nurse's desk knocking on the door several times requesting pain medications. Patient was fairly preoccupied during conversation about obtaining IV morphine. He stat es that "Celeste only thing that helps me". He was fairly focused on the fact that he had "pancreatitis" and states that he is a "severe drinker". He states that he called his brother and was feeling depressed and suicidal and he called the ambulance. He states that he has been dealing with drinking, states that he had his last drink about 6 days ago, states that the withdrawal symptoms have improved significantly. He states that he has been feeling depressed "stressed out" over his fairly vague about his stressors. He did claim that he has financial issues as well. He states that he is currently homeless at this time. Claims that he was feeling suicidal before coming into the hospital that has improved now, denies any homicidal ideations. Claims that his sleep has been poor appetite as been fair. at this time patient denies any auditory or visual hallucinations. Patient denies any flight of ideas racing thoughts and increased in goal directed behavior. Patient admits to using alcohol for the past 30 years or so, states that he drinks about a fifth of vodka a day, last drink was about 6 days ago. Denies any other recreational drug use states that she does use cigarettes." Hospital course: Upon admission to the unit patient was directable and agreeable to commence treatment and signed adult voluntary form. Patient got along well with other patients on the unit and followed unit protocol. Patient was compliant with the medications and denied any side effects throughout hospital course. Patient was started on Lexapro and increased her dose of 20 mg daily for mood/anxiety, Seroquel 300 mg daily at bedtime for insomnia/mood adjunct, naltrexone by mouth 50 mg daily alcohol cravings. Vistaril when necessary for anxiety. Patient was placed on Librium scheduled for alcohol withdrawal however was tapered off prior to discharge. Patient spoke of his stressors and engaged in therapy both group and individual. Patient was also seen by medical team for history and physical exam. Throughout the course of the hospitalization patient gradually improved with regards to mood, anxiety, hallucinations, withdrawal symptoms, sleep and returned back to their baseline level of functioning. On the day of discharge patient denied any suicidal or homicidal ideations intent or plan denied any auditory or visual hallucinations. Patient endorsed wanting to live for his hea lth and family. The patient denied any access to guns or weapons. Patient denied any paranoia and did not endorse any delusions. Patient does have a significant history of substance abuse and was counseled on abstaining from all substances including alcohol and marijuana. Patient was offered however declined inpatient substance-abuse rehab. Patient elected to do outpatient substance use treatment program through [facility]. Patient was also counseled on the medications and need for regular compliance and was encouraged to follow-up with their outpatient appointment for mental health and also for primary care. Mental status exam: General Appearance: Patient appears to be hace haynes hair, stated age is alert, pleasant, and cooperative. Patient is in no acute distress and has improved hygiene and grooming Behavior: Patient is calmly seated without any agitated behavior. Speech: Patient's speech is fluent and nonpressured. Mood/Affect: Patient reports their mood is "better", affect is congruent and euthymic. Suicidality/Homicidality: Patient denies having any suicidal or homicidal ideation intent or plan. Perceptions: Patient denies any auditory or visual hallucinations. Though content/process: There is no evidence of any delusional thought content and thought process is linear and goal-directed. more future oriented Memory and concentration: AOX3, grossly intact for the purposes of this session. Can spell "WORLD" backwards correctly. Judgment and insight: chronically poor, however has improved with guarded prognosis Impression: Depressive disorder unspecified Alcohol use disorder severe dependence Nicotine dependence Plan: -Continue with discharge today as patient has improved and stabilized psychiatrically and is not currently an imminent threat to himself and/or others. Patient will remain at chronically elevated risk for harm to self and/or others due to his impulsivity and substance abuse. -Continue medications: Lexapro 20 mg daily for mood/anxiety, Seroquel 300 mg daily at bedtime for insomnia/mood adjunct, naltrexone 50 mg daily by mouth for alcohol cravings, Librium was discontinued. Vistaril twice a day when necessary for anxiety. -Patient was counseled on the need for medication compliance and appropriate follow-up at mental health and also primary care for medical issues. Patient verbalized understanding and agreed. -Social work to arrange for and conduct family meeting to ensure safety upon discharge and answer any questions/concerns. Social work also to arrange for patients follow up appointments with [facility] for psychiatric care along with follow up with primary care provider. -Patient counseled on abstaining from recreational drugs and marijuana and alcohol. Was informed/educated on the adverse effects on their physical and mental health. Patient verbally agreed and understood. Patient was offered substance abuse treatment however declined at this time. -Patient was instructed to return to the hospital or seek immediate medical care if their psychiatric or medical symptoms do worsen or reoccur. Allergies Allergy/AdvReac Type Severity Reaction Status Date / Time No Known Allergies Allergy Verified 08/03/23 15:28 Laboratory Results WBC 2.9 k/uL (3.8-10.6) L 08/03/23 13:30 RBC 4.66 m/uL (4.30-5.90) 08/03/23 13:30 Hgb 15.6 gm/dL (13.0-17.5) 08/03/23 13:30 Hct 45.7 % (39.0-53.0) 08/03/23 13:30 MCV 97.9 fL (80.0-100.0) 08/03/23 13:30 MCH 33.4 pg (25.0-35.0) 08/03/23 13:30 MCHC 34.1 g/dL (31.0-37.0) 08/03/23 13:30 RDW 18.0 % (11.5-15.5) H 08/03/23 13:30 Plt Count 113 k/uL (150-450) L 08/03/23 13: MPV 7.0 08/03/23 13:30 Neutrophils % 54 % 08/03/23 13:30 Lymphocytes % 31 % 08/03/23 13:30 Monocytes % 10 % 08/03/23 13: Eosinophils % 3 % 08/03/23 13: Basophils % 1 % 08/03/23 13:30 Neutrophils # 1.5 k/uL (1.3-7.7) 08/03/23 13:30 Lymphocytes # 0.9 k/uL (1.0-4.8) L 08/03/23 13:30 Monocytes # 0.3 k/uL (0-1.0) 08/03/23 13:30 Eosinophils # 0.1 k/uL (0-0.7) 08/03/23 13:30 Basophils # 0.0 k/uL (0-0.2) 08/03/23 13:30 Anisocytosis Slight 08/03/23 13:30 Macrocytosis Slight 08/03/23 13:30 PT 10.5 sec (10.0-12.5) 08/03/23 13:30 INR 1.0 (<1.2) 08/03/23 13:30 APTT 27.0 sec (22.0-30.0) 08/03/23 13:30 Sodium 145 mmol/L (137-145) 08/03/23 13:30 Potassium 3.2 mmol/L (3.5-5.1) L 08/03/23 13:30 Chloride 107 mmol/L (98-107) 08/03/23 13:30 Carbon Dioxide 23 mmol/L (22-30) 08/03/23 13:30 Anion Gap 15 mmol/L 08/03/23 13:30 BUN 4 mg/dL (9-20) L 08/03/23 13:30 Creatinine 0.60 mg/dL (0.66-1.25) L 08/03/23 13:30 Est GFR (CKD-EPI)AfAm >90 (>60 ml/min/1.73 sqM) 08/03/23 13:30 Est GFR (CKD-EPI)NonAf >90 (>60 ml/min/1.73 sqM) 08/03/23 13:30 Glucose 132 mg/dL (74-99) H 08/03/23 13:30 Calcium 8.5 mg/dL (8.4-10.2) 08/03/23 13:30 Total Bilirubin 0.7 mg/dL (0.2-1.3) 08/03/23 13:30 AST 43 U/L (17-59) 08/03/23 13:30 ALT 15 U/L (4-49) 08/03/23 13:30 Alkaline Phosphatase 211 U/L (38-126) H 08/03/23 13:30 Total Protein 7.0 g/dL (6.3-8.2) 08/03/23 13:30 Albumin 3.8 g/dL (3.5-5.0) 08/03/23 13:30 Amylase 62 U/L (30-110) 08/03/23 13:30 Lipase 192 U/L (23-300) 08/03/23 13:30 Urine Color Colorless 08/03/23 13:30 Urine Appearance Clear (Clear) 08/03/23 13:30 Urine pH 7.0 (5.0-8.0) 08/03/23 13:30 Ur Specific [place] 1.009 (1.001-1.035) 08/03/23 13:30 Urine Protein Trace (Negative) H 08/03/23 13:30 Urine Glucose (UA) Negative (Negative) 08/03/23 13:30 Urine Ketones Negative (Negative) 08/03/23 13: Urine Blood Small (Negative) H 08/03/23 13:30 Urine Nitrite Negative (Negative) 08/03/23 13:30 Urine Bilirubin Negative (Negative) 08/03/23 13:30 Urine Urobilinogen <2.0 mg/dL (<2.0) 08/03/23 13:30 Ur Leukocyte Esterase Negative (Negative) 08/03/23 13:30 Urine RBC 2 /hpf (0-5) 08/03/23 13:30 Urine WBC <1 /hpf (0-5) 08/03/23 13:30 Urine Mucus Rare /hpf (None) H 08/03/23 13:30 Urine Opiates Screen Negative (Negative) 08/03/23 13:30 Urine Methadone Screen Negative (Negative) 08/03/23 13:30 Ur Propoxyphene Screen Negative (Negative) 08/03/23 13:30 Urine Barbiturates Negative (Negative) 08/03/23 13:30 Ur Phencyclidine Scrn Negative (Negative) 08/03/23 13:30 Ur Amphetamine Screen Negative (Negative) 08/03/23 13:30 U Benzodiazepines Scrn Negative (Negative) 08/03/23 13:30 Urine Cocaine Screen Negative (Negative) 08/03/23 13:30 U Cannabinoids Screen Negative (Negative) 08/03/23 13:30 Urine Alcohol Positive (Negative) A 08/03/23 13:30 Coronavirus (PCR) Not Detected (Not Detectd) 08/04/23 17:23 Vital Signs Temp 98.7 F 08/11/23 08:09 Pulse 85 08/11/23 08:09 Resp 16 08/11/23 06:00 BP 87/59 08/11/23 08:47 Pulse Ox 98 08/11/23 06:00 FiO2 Patient Condition at Discharge: Stable Plan - Discharge Summary Discharge Rx Participant: Yes New Discharge Prescriptions: New Nicotine 14Mg/24Hr Patch [Habitrol] 1 patch TRANSDERM DAILY 14 Days #14 patch Naltrexone HCl [Revia] 50 mg PO DAILY 30 Days #30 tab QUEtiapine [SEROquel] 300 mg PO HS 30 Days #30 tab hydrOXYzine pamoate [Vistaril] 25 mg PO BID PRN 30 Days #60 cap PRN Reason: Anxiety Escitalopram [Lexapro] 20 mg PO DAILY 30 Days #30 tab Ibuprofen [Motrin] 600 mg PO Q6HR PRN tab PRN Reason: Moderate Pain (Scale 4 To 6) Nicotine Gum (Polacrilex) [Nicorette] 2 mg BUCCAL Q4HR PRN pieceofgum PRN Reason: Nicotine Cravings Discharge Medication List Escitalopram [Lexapro] 20 mg PO DAILY 30 Days #30 tab 08/11/23 [Rx] Ibuprofen [Motrin] 600 mg PO Q6HR PRN tab 08/11/23 [Rx] Naltrexone HCl [Revia] 50 mg PO DAILY 30 Days #30 tab 08/11/23 [Rx] Nicotine 14Mg/24Hr Patch [Habitrol] 1 patch TRANSDERM DAILY 14 Days #14 patch 08/11/23 [Rx] Nicotine Gum (Polacrilex) [Nicorette] 2 mg BUCCAL Q4HR PRN pieceofgum 08/11/23 [Rx] QUEtiapine [SEROquel] 300 mg PO HS 30 Days #30 tab 08/11/23 [Rx] hydrOXYzine pamoate [Vistaril] 25 mg PO BID PRN 30 Days #60 cap 08/11/23 [Rx] Follow up Appointment(s)/Referral(s): Gabriel Weaver MD [Primary Care Provider] - 1-2 days Patient Instructions/Handouts: How to Stop Smoking (DC), Depression (DC), Anxiety (ED) Activity/Diet/Wound Care/Special Instructions: Avoid the use of street drugs and alcohol. Take all medications as prescribed. When you are in need of refills on your medications, please contact your medical provider and/or outpatient psychiatrist/provider to have this done. Please go to your scheduled outpatient appointment for aftercare treatment. If symptoms return or become worse, call the crisis line at and/or go to the nearest emergency room for evaluation. National Suicide Hotline 332. Discharge Disposition: HOME SELF-CARE
[2023-08-11] MEDS: IBUPROFEN 600 MG TAB PO PRN (10:32)
[2023-08-11] MEDS: hydrOXYzine pamoate 25 MG CAP PO PRN (14:14)
[2023-08-11 14:23] VITALS: BP 107/59
== END 2023-08-11 14:23 | disposition home or self-care (01) | DRG 754 ==
LOC: EC 12:56 → 3MHU 08-04 19:25
PROVIDERS: ADMIT Psychiatry & Neurology Psychiatry; ATTEND Psychiatry & Neurology Psychiatry
DX: F32.A Depression, unspecified (principal); F10.229 Alcohol dependence with intoxication, unspecified; D72.819 Decreased white blood cell count, unspecified; E87.6 Hypokalemia; E03.9 Hypothyroidism, unspecified; Z20.822 Contact with and (suspected) exposure to COVID-19; G89.29 Other chronic pain; G47.00 Insomnia, unspecified; Z59.86 Financial insecurity; Z79.899 Other long term (current) drug therapy; Z76.5 Malingerer [conscious simulation]; R45.851 Suicidal ideations; Z56.0 Unemployment, unspecified
CPT/HCPCS: 36415; 80053; 80306; 81001; 82075; 82150; 83690; 85025; 85610; 85730; 87635; 93005; 96361; 96374; 96375; 96376; 99285

== ENCOUNTER 2023-09-05 15:34 | Inpatient (IN) | payer MEDICAID, OTHER ==
--- NOTE | 2023-09-05 17:22 | ED ---
Psych HPI - General Source: police Mode of arrival: ambulatory <Ladan Torres - Last Filed: 09/05/23 18:01> <Kareem Baez - Last Filed: 09/06/23 11:09> - General Chief Complaint: Psychiatric Symptoms Stated Complaint: petition Time Seen by Provider: 09/05/23 15:40 - History of Present Illness Initial Comments: 42-year-old male with past medical history of alcohol abuse, depression who presents to the emergency department reporting suicidal ideations. Patient is not forthcoming with his information. It was reported that the patient brought himself in as he was reporting to suicidal ideations with a plan. States that he previously attempted to slit his wrists however will not tell me when this was performed. Incisions over the left wrist appear well-healed. He does admit to drinking today. No drug use. No homicidal ideations. No hallucinations. Patient was hospitalized at our facility and discharged 2 weeks ago. States that he stopped taking his medications as he does not think he needs to be on them. Denies a current plan at this time as to how he would hurt himself. No other alleviating, precipitating or modifying factors (Ladan Torres) - Related Data Previous Rx's Medication Instructions Recorded Escitalopram [Lexapro] 20 mg PO DAILY 30 Days #30 tab 08/11/23 Ibuprofen [Motrin] 600 mg PO Q6HR PRN tab 08/11/23 Naltrexone HCl [Revia] 50 mg PO DAILY 30 Days #30 tab 08/11/23 Nicotine 14Mg/24Hr Patch [Habitrol] 1 patch TRANSDERM DAILY 14 Days 08/11/23 #14 patch Nicotine Gum (Polacrilex) 2 mg BUCCAL Q4HR PRN pieceofgum 08/11/23 [Nicorette] QUEtiapine [SEROquel] 300 mg PO HS 30 Days #30 tab 08/11/23 hydrOXYzine pamoate [Vistaril] 25 mg PO BID PRN 30 Days #60 cap 08/11/23 Allergies Allergy/AdvReac Type Severity Reaction Status Date / Time No Known Allergies Allergy Verified 09/05/23 17:47 Review of Systems ROS Other: All systems not noted in ROS Statement are negative. <Ladan Torres - Last Filed: 09/05/23 18:01> ROS Other: All systems not noted in ROS Statement are negative. <Kareem Baez - Last Filed: 09/06/23 11:09> ROS Statement: Those systems with pertinent positive or pertinent negative responses have been documented in the HPI. Past Medical History Past Medical History: Asthma Additional Past Medical History / Comment(s): pancreatisis, asthma History of Any Multi-Drug Resistant Organisms: None Reported Additional Past Surgical History / Comment(s): wrist surgery Past Psychological History: No Psychological Hx Reported, Anxiety, Depression Smoking Status: Current every day smoker Past Alcohol Use History: Occasional Past Drug Use History: None Reported <Ladan Torres - Last Filed: 09/05/23 18:01> General Exam Limitations: no limitations General appearance: alert, in no apparent distress, appears intoxicated Head exam: Present: atraumatic, normocephalic, normal inspection Eye exam: Present: normal appearance, PERRL, EOMI. Absent: scleral icterus, conjunctival injection, periorbital swelling ENT exam: Present: normal exam, mucous membranes moist Neck exam: Present: normal inspection. Absent: tenderness, meningismus, lymphadenopathy Respiratory exam: Present: normal lung sounds bilaterally. Absent: respiratory distress, wheezes, rales, rhonchi, stridor Cardiovascular Exam: Present: regular rate, normal rhythm, normal heart sounds. Absent: systolic murmur, diastolic murmur, rubs, gallop, clicks GI/Abdominal exam: Present: soft, normal bowel sounds. Absent: distended, tenderness, guarding, rebound, rigid Extremities exam: Present: normal inspection, full ROM, normal capillary refill. Absent: tenderness, pedal edema, joint swelling, calf tenderness Back exam: Present: normal inspection Neurological exam: Present: alert, oriented X3, CN II-XII intact Psychiatric exam: Present: depressed, suicidal ideation Skin exam: Present: warm, dry, intact, normal color. Absent: rash <Ladan Torres - Last Filed: 09/05/23 18:01> Course Vital Signs 09/05/23 09/06/23 15:35 06:34 Temperature 98.3 F 98.8 F Pulse Rate 100 62 Respiratory 20 18 Rate Blood Pressure 147/99 128/68 O2 Sat by Pulse 94 L 100 Oximetry Medical Decision Making <Ladan Torrse - Last Filed: 09/05/23 18:01> <Kareem Baez - Last Filed: 09/06/23 11:09> - Medical Decision Making Was pt. sent in by a medical professional or institution ([facility], SENIOR QUALITATIVE RESEARCHER, urgent care, hospital, or assisted...) When possible be specific @ -No Did you speak to anyone other than the patient for history (EMS, parent, family, police, friend...)? What history was obtained from this source @ -No Did you review nursing and triage notes (agree or disagree)? Why? @ -I reviewed and agree with nursing and triage notes Were old charts reviewed (outside hosp., previous admission, EMS record, old EKG, old radiological studies, urgent care reports/EKG's, assisted records)? Report findings @ -I reviewed patient's discharge summary from July 2023 when he was admitted to the mental health floor Differential Diagnosis (chest pain, altered mental status, abdominal pain women, abdominal pain men, vaginal bleeding, weakness, fever, dyspnea, syncope, headache, dizziness, GI bleed, back pain, seizure, CVA, palpatations, mental health, musculoskeletal)? @ -Differential Mental Health Depression, anxiety, bipolar, psychosis, schizophrenia, borderline personality, situational depression, adjustment disorder, behavioral disorder, brain tumor, malingering, substance abuse, encephalopathy, medication reaction, dementia, hypothyroidism, degenerative neurologic disorder, lupus.... This is not meant to be all-inclusive list EKG interpreted by me (3pts min.). @ -Not done X-rays interpreted by me (1pt min.). @ -None done CT interpreted by me (1pt min.). @ -None done U/S interpreted by me (1pt. min.). @ -None done What testing was considered but not performed or refused? (CT, X-rays, U/S, labs)? Why? @ -None What meds were considered but not given or refused? Why? @ -None Did you discuss the management of the patient with other professionals (professionals i.e. [facility], SENIOR QUALITATIVE RESEARCHER, lab, RT, psych nurse, social work case manager, garment sewer hand, teacher, labor relations officer, home health care case manager)? Give summary @ -Spoke with EPS who needs to evaluate the patient after he is sober Was smoking cessation discussed for >3mins.? @ -No Was critical care preformed (if so, how long)? @ -No Were there social determinants of health that impacted care today? How? (Homelessness, low income, unemployed, alcoholism, drug addiction, transportation, low edu. Level, literacy, decrease access to med. care, skilled nursing, rehab)? @ -No Was there de-escalation of care discussed even if they declined (Discuss DNR or withdrawal of care, Hospice)? DNR status @ -No What co-morbidities impacted this encounter? (DM, HTN, Smoking, COPD, CAD, Cancer, CVA, ARF, Chemo, Hep., AIDS, mental health diagnosis, sleep apnea, morbid obesity)? @ -Depression, alcohol abuse Was patient admitted / discharged? Hospital course, mention meds given and route, prescriptions, significant lab abnormalities, going to OR and other pertinent info. @ -Upon arrival patient was placed into room 14. Thorough history and physical exam was performed. Patient is intoxicated. He must be evaluated by EPS when sober. We are currently awaiting their recommendations Undiagnosed new problem with uncertain prognosis? @ -No Drug Therapy requiring intensive monitoring for toxicity (Heparin, Nitro, Insulin, Cardizem)? @ -No Were any procedures done? @ -No Diagnosis/symptom? @ -Acute depression, suicidal ideation Acute, or Chronic, or Acute on Chronic? @ -acute Uncomplicated (without systemic symptoms) or Complicated (systemic symptoms)? @ -Complicated Side effects of treatment? @ -No Exacerbation, Progression, or Severe Exacerbation? @ -No Poses a threat to life or bodily function? How? (Chest pain, [place], CA, pneumonia, PE, COPD, DKA, ARF, appy, cholecystitis, CVA, Diverticulitis, Homicidal, Suicidal, threat to staff... and all critical care pts) @ -yes patient actively suicidal (Ladan Torres) Patient evaluated by EPS and will be admitted to this institution. (Kareem Baez) - Lab Data Lab Results 09/05/23 Range/Units 18:19 Urine Opiates Screen Not Detected (NotDetected) Ur Oxycodone Screen Not Detected (NotDetected) Urine Methadone Screen Not Detected (NotDetected) Ur Propoxyphene Screen Not Detected (NotDetected) Ur Barbiturates Screen Not Detected (NotDetected) U Tricyclic Antidepress Not Detected (NotDetected) Ur Phencyclidine Scrn Not Detected (NotDetected) Ur Amphetamines Screen Not Detected (NotDetected) U Methamphetamines Scrn Not Detected (NotDetected) U Benzodiazepines Scrn Not Detected (NotDetected) Urine Cocaine Screen Not Detected (NotDetected) U Marijuana (THC) Screen Not Detected (NotDetected) Disposition <Ladan Torres A - Last Filed: 09/05/23 18:01> Is patient prescribed a controlled substance at d/c from ED?: No Time of Disposition: 11:09 <Kareem Baez - Last Filed: 09/06/23 11:09> Clinical Impression: Depression, Alcohol intoxication, Suicidal ideation Disposition: ADMITTED IP TO THIS HOSP Condition: Stable Referrals: Gabriel Weaver MD [Primary Care Provider] - 1-2 days
[2023-09-05] MEDS ORDERED: ACETAMINOPHEN TAB 500 MG TAB PO STA (19:06)
[2023-09-05 19:24] LABS: Amphetamine Screen,Urine Not Detected (NotDetected); Barbiturate Screen,Urine Not Detected (NotDetected); Benzodiazepines Screen,Urine Not Detected (NotDetected); Cocaine Screen,Urine Not Detected (NotDetected); Methadone Screen, Urine Not Detected (NotDetected); Opiate Screen,Urine Not Detected (NotDetected); Oxycodone Screen, Urine Not Detected (NotDetected); Phencyclidine Screen,Urine Not Detected (NotDetected); Tricyclic Antidepressant,Urine Not Detected (NotDetected); Urn Cannabinoid Scrn Not Detected (NotDetected)
[2023-09-06] MEDS ORDERED: IBUPROFEN 600 MG TAB PO PRN (00:02)
[2023-09-06] MEDS ORDERED: NICOTINE GUM (POLACRILEX) 2 MG GUM BUCCAL PRN (00:02)
[2023-09-06] MEDS ORDERED: hydrOXYzine pamoate 25 MG CAP PO PRN (00:02)
[2023-09-06] MEDS ORDERED: QUEtiapine 100 MG TAB PO SCH ×2 (00:15→21:00)
[2023-09-06] MEDS ORDERED: ESCITALOPRAM 20 MG TAB PO SCH (09:00)
[2023-09-06] MEDS ORDERED: NALTREXONE HCL 50 MG TAB PO SCH (09:00)
[2023-09-06] MEDS ORDERED: NICOTINE 14MG/24HR PATCH TRANSDERM SCH (09:00)
[2023-09-06] MEDS ORDERED: MAGNESIUM HYDROXIDE 2,400 MG/30 ML CUP PO PRN (14:17)
[2023-09-06] MEDS: IBUPROFEN 600 MG TAB PO PRN (17:08)
[2023-09-06] MEDS: hydrOXYzine pamoate 25 MG CAP PO PRN (17:09)
[2023-09-06] MEDS: MAG HYDROX/AL HYDROX/SIMETH 30 ML CUP PO PRN (19:41)
[2023-09-06] MEDS: LORazepam 1 MG TAB PO PRN (21:02)
[2023-09-06] MEDS: ACETAMINOPHEN TAB 325 MG TAB PO PRN (21:03)
[2023-09-07] MEDS: IBUPROFEN 600 MG TAB PO PRN ×4 (00:30→22:21)
[2023-09-07] MEDS: LORazepam 1 MG TAB PO PRN ×4 (00:30→22:20)
[2023-09-07] MEDS ORDERED: LORazepam 1 MG TAB PO STA ×2 (07:27→10:02)
[2023-09-07] MEDS: haloperidoL 5 MG TAB PO PRN ×2 (07:31→15:53)
[2023-09-07] MEDS ORDERED: HALOPERIDOL LACTATE 5 MG/ML 1 ML VIAL IM STA (08:18)
[2023-09-07] MEDS: NICOTINE 14MG/24HR PATCH TRANSDERM SCH (08:36)
[2023-09-07] MEDS ORDERED: ESCITALOPRAM 20 MG TAB PO SCH (09:00)
--- NOTE | 2023-09-07 11:26 | P.HP ---
Psychiatric H&P - . H&P Date: 09/07/23 History & Physical: Initial Psychiatric Evaluation Chief Complaint: "Angelo brought me here" History of Present Illness: The patient is a 42 year old male who initially presented to the ED with a chief complaint of suicidal ideation. The patient re ported to ED staff that he had suicidal thoughts and the plan, stated that he previously attempted to cut his wrist. The patient admitted for alcohol drinking before he came to the hospital. He denies other drug use. No reports of homicidal ideation. At the time that he came to the hospital, he denies any hallucinations. The patient was hospitalized through this unit last month and discharge few weeks ago when prescriptions LEXAPRO, naltrexone, and Seroquel. The patient has not been taking his psychiatric medications as he reported to the ED staff. The patient was admitted to the inpatient psychiatric unit and started on CIWA monitoring for alcohol withdrawal which trigger giving him the doses of 2 mg Ativan based on CIWA score in the first 8-10 hours of his admission to the psych unit. Nursing staff called this morning and reported the patient presented confused, restless, and to some degree disoriented. Medical team evaluated the patient for risk of DTs, and they didn't consider any current need to transfer the patient to the medical floor. During the evaluation today, the patient was not able to provide any reliable history because of his cognitive impairment and confusion which is most probably related to alcohol withdrawal. The patient was talking about "Angelo" his brother who brought him to the hospital but he couldn't explain the reason why he came to the hospital, and he continues to talk bizarre with nonsensical speech and sometimes pacing around in the exam room with inappropriate behavior as trying to drink might want to or open the cabinet, or looking at the compute. The patient was responding to redirection but he needs frequent redirection. The patient was not able to provide any history but he reports has been hearing and seeing things. When I tried to ask more questions about his mental health or the reported hallucinations, the patient continued to talk nonsensical with bizarre behavior. The patient was talking about he was living with his brother, the dog, and the baby's able brother's son, but he couldn't give any clear answers about why he came to the hospital other than that his brother brought him here. The patient was oriented to person, place, and situation but not oriented to time. He reports that he drinks a few times a week with average 3-4 shots of vodka every time. Past Psychiatric History: the patient was not able to provide any reliable history because of his cognitive impairment and confusion which is most probably related to alcohol withdrawal. Previous diagnoses: Depression Previous psychiatric hospitalizations: The pa discharged and from this unit last month diagnosed with depressive disorder and was prescribed Lexapro and Seroquel at discharge Previous suicide attempts: none reported Current psychiatric medications: the patient currently not taking any psychiatric medications Previous outpatient psychiatric treatment and medication trials: The patient was discharged it last month from this unit on Lexapro and Seroquel. Most probably the patient didn't follow-up with any outpatient psychiatric treatment and he wasn't taking his psychiatric medications. as per previous records, the patient was on other psychiatric medications in the past including Remeron and other antidepressant that he didn't recall. Allergies Allergy/AdvReac Type Severity Reaction Status Date / Time No Known Allergies Allergy Verified 09/05/23 17:47 Vital Signs Temp 97.0 F L 09/07/23 08:40 Pulse 62 09/06/23 06:34 Resp 20 09/07/23 08:40 BP 108/67 09/07/23 08:40 Pulse Ox 100 09/06/23 06:34 FiO2 Intake & Output 09/06/23 09/07/23 09/07/23 18:59 06:59 18:59 Weight 79.379 kg Laboratory Last Values Urine Opiates Screen Not Detected (NotDetected) 09/05/23 18:19 Ur Oxycodone Screen Not Detected (NotDetected) 09/05/23 18:19 Urine Methadone Screen Not Detected (NotDetected) 09/05/23 18:19 Ur Propoxyphene Screen Not Detected (NotDetected) 09/05/23 18:19 Ur Barbiturates Screen Not Detected (NotDetected) 09/05/23 18:19 U Tricyclic Antidepress Not Detected (NotDetected) 09/05/23 18:19 Ur Phencyclidine Scrn Not Detected (NotDetected) 09/05/23 18:19 Ur Amphetamines Screen Not Detected (NotDetected) 09/05/23 18:19 U Methamphetamines Scrn Not Detected (NotDetected) 09/05/23 18:19 U Benzodiazepines Scrn Not Detected (NotDetected) 09/05/23 18:19 Urine Cocaine Screen Not Detected (NotDetected) 09/05/23 18:19 U Marijuana (THC) Screen Not Detected (NotDetected) 09/05/23 18:19 SARS-CoV-2 (PCR) Not Detected (Not Detectd) 09/06/23 12:47 PAST MEDICAL HISTORY: pancreatisis, asthma, chronic neck pain History of wrist surgery FAMILY HISTORY: No reports of family history of mental illness, substance use disorders, or suicidal behavior Substance Use History: Nicotine: the patient smokes one pack of cigarettes daily Alcohol: the patient reports drinking alcohol 4 shots of both Few times a week. He reports history of previous inpatient rehab treatment for alcohol use disorder but he couldn't give any details. The patient denies using other illicit drugs. SOCIAL HISTORY: Patient was born in [place] and been raised up by his parents Patient reports having no children, and he has never been . Housing: Currently homeless. The patient reports last time stable housing was more than 2 years ago in [place]. 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 Allergies: The patient denies any medication allergies Mental Status Examination: Appearance: Appears stated age, disheveled, average body built, and no specific features. Gait/ posture: steady gait, normal arm swinging, no abnormal movements. Attitude and Behavior: not Engaged, not cooperative, pacing all the time, and couldn't sit still, no eye contact during course of interview. Motor Activity: increased psychomotor activity. Speech: abnormal rate, rhythm. None pressured. Mood:" Anxious" Affect: restricted Thought form: confused, incoherent with clang association. Thought content: not Logical, bizarrel, denies suicidal, homicidal thoughts, intentions, or plans. Perception: Reports auditory and visual hallucinations. Attention: very distracted Orientation: Oriented to place, person, and situation Insight & Judgment: impaired Impulse control: impaired Assessment: Alcohol withdrawal Alcohol use disorder, severe. Depressive disorder unspecified Personality disorder unspecified Nicotine dependence Plan: Continue inpatient level of care due to the patient needs further monitoring and stabilization of his psychiatric condition. He presented to the hospital with a chief complaint of suicidal ideation with plan to cut his wrist, and currently presents with cognitive impairment and confusion which is most probably related to alcohol withdrawal. Precautions: continue 15 minutes check for safety with precautions including suicide and elopement. Consider medical consultation if any acute medical issues arise. Medical team evaluated the patient for potential DTs, and that they don't consider any current risk of DTs at this time Medications: We will started the patient on a regular doses of Ativan 2 mg 4 times daily to manage alcohol withdrawal symptoms, and to be tapered down after stabilization of withdrawal symptoms. We will continue CIWA protocol for monitoring alcohol withdrawal symptoms and to use PRN Ativan based on CIWA protocol. We will started the patient on Seroquel 200 mg at bedtime for mood stabilization, psychotic symptoms, and depression. We will consider starting the patient on Lexapro after stabilization of the current withdrawal symptoms. Start thiamine, folic acid, for alcohol use. Start nicotine replacement therapy Labs: None Continue management of non-psychiatric chronic medical condition/s as per home medications considering that patient is stable medically. Discharge patient to outpatient services upon stabilization Consent obtained to start new medication. Patient was educated about new medication/s Seroquel, Ativan, and the Lexapro including purpose and intended effects, and possible side effects. Patient agreed to start medication/s, verbalized understanding of risks, benefits, and treatment alternatives. Patient strengths: Stable general medical condition. Family support, the patient reports recently was living with his brother. Patient Challenges: Housing. Alcohol use disorder. Limited social support.
[2023-09-07] MEDS: FOLIC ACID 1 MG TAB PO SCH (11:52)
[2023-09-07] MEDS: THIAMINE 100 MG TAB PO SCH (11:52)
[2023-09-07 12:08] LABS: ALT 14 U/L (4-49); AST 34 U/L (17-59); African American GFR (CKD) >90 (>60 ml/min/1.73 sqM); Albumin 4.2 g/dL (3.5-5.0); Alkaline Phosphatase 243 U/L (38-126); Anion Gap 12 mmol/L; Blood Urea Nitrogen 5 mg/dL (9-20); Calcium 9.5 mg/dL (8.4-10.2); Carbon Dioxide 21 mmol/L (22-30); Chloride 102 mmol/L (98-107); Glucose 102 mg/dL (74-99); Non-African American GFR(CKD) >90 (>60 ml/min/1.73 sqM); Potassium 4.1 mmol/L (3.5-5.1); Sodium 135 mmol/L (137-145); Total Bilirubin 1.2 mg/dL (0.2-1.3); Total Protein 7.1 g/dL (6.3-8.2)
[2023-09-07 12:13] LABS: Anisocytosis Slight; Basophils # (A) 0.1 k/uL (0-0.2); Basophils % (A) 1 %; Eosinophils # (A) 0.1 k/uL (0-0.7); Eosinophils % (A) 1 %; HCT 40.3 % (39.0-53.0); HGB 14.1 gm/dL (13.0-17.5); Lymphocytes # (A) 0.6 k/uL (1.0-4.8); Lymphocytes % (A) 9 %; MCH 35.1 pg (25.0-35.0); MCHC 34.9 g/dL (31.0-37.0); MCV 100.7 fL (80.0-100.0); Macrocytosis Slight; Mean Platelet Volume 7.5; Monocytes # (A) 0.4 k/uL (0-1.0); Monocytes % (A) 6 %; Neutrophils # (A) 5.6 k/uL (1.3-7.7); Neutrophils % (A) 83 %; RDW 17.2 % (11.5-15.5); WBC 6.8 k/uL (3.8-10.6)
[2023-09-07 12:16] LABS: Platelet Count 181 k/uL (150-450)
[2023-09-07] MEDS: LORazepam 1 MG TAB PO SCH ×3 (12:57→20:35)
[2023-09-07] MEDS ORDERED: QUEtiapine 100 MG TAB PO STA (14:35)
[2023-09-07] MEDS: QUEtiapine 200 MG TAB PO SCH (20:35)
[2023-09-07] MEDS: hydrOXYzine pamoate 25 MG CAP PO PRN (20:35)
[2023-09-07] MEDS: HALOPERIDOL LACTATE 5 MG/ML 1 ML VIAL IM PRN (20:37)
--- NOTE | 2023-09-07 22:10 | CONS ---
CONSULTATION LOCATION: 314 on the psych floor. CHIEF COMPLAINT: Major depression with suicidal thoughts and alcoholism. HISTORY OF PRESENT ILLNESS: This 42-year-old male has had problems with depression in the past and has attempted suicide. Came to emergency room this time complaining of depression and thoughts about suicide. He also drinks heavily. REVIEW OF SYSTEMS: He denies any diplopia, tremors, confusion, nausea, vomiting, chest pain, melena, hematochezia, diarrhea, etc. Past medical history, family history, and personal and social histories are all otherwise unremarkable. PHYSICAL EXAMINATION: VITAL SIGNS: Normal. HEAD, EARS, EYES, NOSE, MOUTH AND THROAT: Normal. CHEST: Clear. CARDIAC: Demonstrates sinus rhythm with a rate of around 80. The remainder of the exam is normal. He is not tremulous, diaphoretic, or agitated other than constantly walking around. IMPRESSION: 1. Major depression. 2. History of suicide attempts. 3. Hallucinations with schizophrenia. 4. Alcoholism. RECOMMENDATIONS: None at this time. I feel that his hyperactivity is psychiatric and probably not on the basis of DTs. MMODL / IJN: [id number] /
[2023-09-08] MEDS: LORazepam 1 MG TAB PO PRN ×2 (02:03→20:00)
[2023-09-08] MEDS: HALOPERIDOL LACTATE 5 MG/ML 1 ML VIAL IM PRN (02:04)
[2023-09-08] MEDS ORDERED: LORazepam 1 MG TAB PO SCH (09:00)
[2023-09-08] MEDS: NICOTINE 14MG/24HR PATCH TRANSDERM SCH (09:24)
[2023-09-08] MEDS: FOLIC ACID 1 MG TAB PO SCH (09:24)
[2023-09-08] MEDS: THIAMINE 100 MG TAB PO SCH (09:24)
[2023-09-08] MEDS ORDERED: chlordiazePOXIDE 25 MG CAP PO STA (10:04)
[2023-09-08] MEDS ORDERED: LORazepam 2 MG/ML INJ IM PRN (11:40)
--- NOTE | 2023-09-08 11:43 | P.PN ---
Progress Note - Text Progress Note Date: 09/08/23 Interval History: Patient was seen wandering the hallways and was directable and agreeable to sp amaya with keno writer in the unge. he is currently on a 1:1 sitter. Patient is disorientated, rambling, with flight of ideas. Disorganized speech, confused. At this time patient denies any suicidal or homical ideations, intent or plan. Patient is wandering into other patients rooms, consultant in ergonomics and safety provided. Patient endorses auditory,denies visual hallucinations and denies any paranoia or delusions. Patient denies any side effects from the medications and has been compliant with meds. patient had poor attention span and wandered away from the conversation. Mental Status Exam: Appearance: Appears stated age, disheveled, average body built, and no specific features. Attitude and Behavior: not Engaged, not cooperative, pacing all the time, and couldn't sit still, no eye contact during course of interview. Speech: abnormal rate, rhythm. nonpressured, rambling, mumbling Mood: unable to gather information Affect: restricted Thought form: confused, incoherent with loose association. Thought content: not Logical, bizarre, denies suicidal, homicidal thoughts, intentions, or plans. Perception: Reports auditory and no visual hallucinations. Attention: very distracted Orientation:AOx1 to name only. Insight & Judgment: impaired Impulse control: impaired Assessment: Delirium, likely secondary to etoh withdrawal. Alcohol use disorder, severe. Depressive disorder unspecified Personality disorder unspecified Nicotine dependence Plan: -Patient continues to meet criteria for inpatient psychiatric admission for symptom stabilization and safety. Patient has signed adult voluntary form and medication consent and was placed in patient's chart. -Medications: Librium 50 mg 3 times a day for alcohol withdrawal symptoms with the plan to taper down. We will continue CIWA protocol for monitoring alcohol withdrawal symptoms and to use PRN Ativan based on CIWA protocol. Seroquel 200 mg at bedtime for mood stabilization, psychotic symptoms, and depression. We will consider starting the patient on Lexapro after stabilization of the current withdrawal symptoms. thiamine, folic acid, for alcohol use. -When necessary Ativan and Haldol for agitation/aggression. -NRT - nicotine patch -SW on board for discharge planning. Encouraged the patient to participate in milieu.
[2023-09-08] MEDS: haloperidoL 5 MG TAB PO PRN ×2 (11:49→17:55)
[2023-09-08] MEDS: IBUPROFEN 600 MG TAB PO PRN (15:21)
[2023-09-08] MEDS: chlordiazePOXIDE 25 MG CAP PO SCH ×2 (15:22→20:01)
[2023-09-08] MEDS: MAG HYDROX/AL HYDROX/SIMETH 30 ML CUP PO PRN (15:23)
[2023-09-08] MEDS: hydrOXYzine pamoate 25 MG CAP PO PRN (20:01)
[2023-09-08] MEDS: QUEtiapine 200 MG TAB PO SCH (20:01)
[2023-09-09] MEDS: THIAMINE 100 MG TAB PO SCH (07:57)
[2023-09-09] MEDS: chlordiazePOXIDE 25 MG CAP PO SCH (07:57)
[2023-09-09] MEDS: FOLIC ACID 1 MG TAB PO SCH (07:57)
[2023-09-09] MEDS: NICOTINE 14MG/24HR PATCH TRANSDERM SCH (07:57)
[2023-09-09] MEDS ORDERED: LORazepam 1 MG TAB PO SCH (09:00)
--- NOTE | 2023-09-09 10:02 | P.PN ---
Progress Note - Text Progress Note Date: 09/09/23 Interval History: Patient was seen at bedside and was directable and agreeable to speak with felix calle. Patient is disorientated and rambling. Disorganized speech, he was fairly sedated, and confused today in bed. Will decrease librium due to sedation. At this time patient denies any suicidal or homical ideations, intent or plan. home restoration service supervisor d/c'd due to patient clearing a little more psychiatrically. Patient continues to endorse auditory hallucinations,denies visual hallucinations and denies any paranoia or delusions. Patient denies any side effects from the medications and has been compliant with meds. patient had poor attention span. Mental Status Exam: Appearance: Appears stated age, disheveled, average body built, and no specific features. Attitude and Behavior: not Engaged, sedated, no eye contact during course of interview. Speech: abnormal rate, rhythm. nonpressured, mumbling Mood: unable to gather information Affect: restricted Thought form: confused, incoherent with loose association. Thought content: not Logical, bizarre, denies suicidal, homicidal thoughts, intentions, or plans. Perception: Reports auditory and no visual hallucinations. Attention: very distracted, drowsy Orientation:AOx1 to name only. Insight & Judgment: impaired Impulse control: impaired Assessment: Delirium, likely secondary to etoh withdrawal. Alcohol use disorder, severe. Depressive disorder unspecified Personality disorder unspecified Nicotine dependence Plan: -Patient continues to meet criteria for inpatient psychiatric admission for symptom stabilization and safety. He is currently voluntary on the unit. Patient has signed adult voluntary form and medication consent and was placed in patient's chart. -Medications: decrease Librium 20 mg 4 times a day for alcohol withdrawal symptoms with the plan to taper down. We will continue CIWA protocol for monitoring alcohol withdrawal symptoms and to use PRN Ativan based on CIWA protocol. Seroquel 200 mg at bedtime for mood stabilization, psychotic symptoms, and depression. We will consider starting the patient on Lexapro after stabilization of the current withdrawal symptoms. thiamine, folic acid, for alcohol use. -When necessary Ativan and Haldol for agitation/aggression. -NRT - nicotine patch -SW on board for discharge planning. Encouraged the patient to participate in milieu.
[2023-09-09] MEDS: hydrOXYzine pamoate 25 MG CAP PO PRN ×2 (11:30→21:12)
[2023-09-09] MEDS: IBUPROFEN 600 MG TAB PO PRN ×2 (11:32→18:41)
[2023-09-09] MEDS: ACETAMINOPHEN TAB 325 MG TAB PO PRN (13:10)
[2023-09-09] MEDS: QUEtiapine 200 MG TAB PO SCH (21:11)
[2023-09-10] MEDS: THIAMINE 100 MG TAB PO SCH (08:48)
[2023-09-10] MEDS: NICOTINE 14MG/24HR PATCH TRANSDERM SCH (08:48)
[2023-09-10] MEDS: FOLIC ACID 1 MG TAB PO SCH (08:48)
[2023-09-10] MEDS ORDERED: LORazepam 1 MG TAB PO SCH (09:00)
--- NOTE | 2023-09-10 10:59 | P.PN ---
Progress Note - Text Progress Note Date: 09/10/23 Interval History: Patient was seen at bedside and was directable and agreeable to speak with felix calle. Patient states that he's doing better than yesterday, and he's going through withdraw symptoms, and he's trying to just "sleep it off". Patient appears more clear in his speech, and states that yesterday he was having VH/AH, however, today he is not. He is taking the medications to help with withdraw symptoms. Spoke with patient about getting set up at rehab upon discharge, explained that it would be best for him, to keep him sober. Patient stated he would think about it. Patient is eating meals, and sleeping well. Patient is not going to groups. At this time patient denies any suicidal or homical ideations, intent or plan. Patient denies auditory hallucinations,denies visual hallucinations and denies any paranoia or delusions. Patient denies any side effects from the medications and has been compliant with meds. Mental Status Exam: Appearance: Appears stated age, disheveled, average body built, and no specific features. Attitude and Behavior: not Engaged, no eye contact during course of interview.mildly improving Speech: abnormal rate, rhythm. nonpressured, mumbling mildly improving Mood: "better than yesterday" Affect: restricted, mildly improving Thought content: not Logical, denies suicidal, homicidal thoughts, intentions, or plans. Perception: Reports auditory and no visual hallucinations. Attention:drowsy, improving Orientation:AOx3 Insight & Judgment: impaired Impulse control: impaired Assessment: Delirium, likely secondary to etoh withdrawal. Alcohol use disorder, severe. Depressive disorder unspecified Personality disorder unspecified Nicotine dependence Plan: -Patient continues to meet criteria for inpatient psychiatric admission for symptom stabilization and safety. He is currently voluntary on the unit. Patient has signed adult voluntary form and medication consent and was placed in patient's chart. -Medications: decrease Librium 20 mg 3 times a day for alcohol withdrawal symptoms with the plan to taper down. We will continue CIWA protocol for monitoring alcohol withdrawal symptoms and to use PRN Ativan based on CIWA protocol. Seroquel 200 mg at bedtime for mood stabilization, psychotic symptoms, and depression. We will consider starting the patient on Lexapro after stabilization of the current withdrawal symptoms. thiamine, folic acid, for alcohol use. -When necessary Ativan and Haldol for agitation/aggression. -NRT - nicotine patch -SW on board for discharge planning. Encouraged the patient to participate in milieu. Offered patient rehab upon discharge, patient will think about it.
[2023-09-10] MEDS: hydrOXYzine pamoate 25 MG CAP PO PRN (14:45)
[2023-09-10] MEDS: IBUPROFEN 600 MG TAB PO PRN (14:47)
[2023-09-10] MEDS: ACETAMINOPHEN TAB 325 MG TAB PO PRN (16:20)
[2023-09-10] MEDS: QUEtiapine 200 MG TAB PO SCH (20:34)
[2023-09-11] MEDS: IBUPROFEN 600 MG TAB PO PRN ×3 (03:19→20:34)
[2023-09-11] MEDS: NICOTINE 14MG/24HR PATCH TRANSDERM SCH (08:28)
[2023-09-11] MEDS: THIAMINE 100 MG TAB PO SCH (08:29)
[2023-09-11] MEDS: FOLIC ACID 1 MG TAB PO SCH (08:29)
[2023-09-11] MEDS: MAG HYDROX/AL HYDROX/SIMETH 30 ML CUP PO PRN (11:08)
--- NOTE | 2023-09-11 11:51 | P.PN ---
Progress Note - Text Progress Note Date: 09/11/23 Interval History: Patient was seen in group and was directable and agreeable to speak with keno writer / runner. Patient states that he's emotionally and mentally up and down, with good days and bad days. Patient claims that he slept better last night. States his anxiety is getting a little better, however, yesterday he had a "melt down" and cried for about an hour. Patient appears more clear in his speech, and states he's not having any more withdraw symptoms. He is taking the medications to help with wi thdraw symptoms. Spoke with patient about getting set up at rehab upon discharge, explained that it would be best for him, to keep him sober. Patient agreeable, will coordinate with social work to set this up. Spoke with patient about anti craving medications, patient states it did not help him with the cravings before when he took it, and that it would just cost more money for him to get drunk, however is agreeable to try it again, because he is ready to quit drinking. Patient is eating meals, and sleeping well. Patient is not going to groups. At this time patient denies any suicidal or homical ideations, intent or plan. Patient endorses auditory hallucinations, denies visual hallucinations and denies any paranoia or delusions. Patient denies any side effects from the medications and has been compliant with meds. Mental Status Exam: General Appearance: Appears stated age, disheveled, average body built, and no specific features. Behavior: Patient is calmly seated without any agitated behavior. Speech: Patient's speech nonpressured, fluent Mood/Affect: Claims his mood is "up and down", and depressed.affect is constricted mildly improving Suicidality/Homicidality: Patient denies having any suicidal or homicidal ideation intent or plan. Perceptions: Patient denies any visual hallucinations, endorses auditory hallucinations Though content/process: There is no evidence of any delusional thought content. Memory and concentration: AOX3, improved attention span. Judgment and insight: poor mildly improving Assessment: Delirium, likely secondary to etoh withdrawal. Alcohol use disorder, severe. Depressive disorder unspecified Personality disorder unspecified Nicotine dependence Plan: -Patient continues to meet criteria for inpatient psychiatric admission for sym ptom stabilization and safety. He is currently voluntary on the unit. Patient has signed adult voluntary form and medication consent and was placed in patient's chart. -Medications: decrease Librium 10 mg 4 times a day for alcohol withdrawal symptoms with the plan to taper down. increase Seroquel 300 mg at bedtime for mood stabilization, psychotic symptoms, and depression. Add Zoloft 50mg qhs for mood/anxiety. add naltexone 50mg daily for alcohol cravings. We will continue CIWA protocol for monitoring alcohol withdrawal symptoms and to use PRN Ativan based on CIWA protocol. thiamine, folic acid, for alcohol use. -When necessary Ativan and Haldol for agitation/aggression. -NRT - nicotine patch -SW on board for discharge planning. Encouraged the patient to participate in milieu. Offered patient rehab upon discharge, patient is agreeable and will attempt to call access line today. offered patient anticraving medication, naltrexone, Patient agreeable.
[2023-09-11] MEDS: SERTRALINE 50 MG TAB PO SCH (11:53)
[2023-09-11] MEDS: NALTREXONE HCL 50 MG TAB PO SCH (11:53)
[2023-09-11] MEDS: QUEtiapine 100 MG TAB PO SCH (20:31)
[2023-09-11] MEDS: hydrOXYzine pamoate 25 MG CAP PO PRN (20:33)
[2023-09-12] MEDS: NICOTINE 14MG/24HR PATCH TRANSDERM SCH (08:55)
[2023-09-12] MEDS: THIAMINE 100 MG TAB PO SCH (08:55)
[2023-09-12] MEDS: NALTREXONE HCL 50 MG TAB PO SCH (08:55)
[2023-09-12] MEDS: FOLIC ACID 1 MG TAB PO SCH (08:55)
[2023-09-12] MEDS: SERTRALINE 50 MG TAB PO SCH (08:55)
[2023-09-12] MEDS: IBUPROFEN 600 MG TAB PO PRN ×2 (09:00→16:11)
--- NOTE | 2023-09-12 11:11 | P.PN ---
Progress Note - Text Progress Note Date: 09/12/23 Interval History: Patient was seen in group and was directable and agreeable to speak with administrative underwriter. Patient states that he's "super duper depressed and anxious today" Claims that his place that he was supposed to stay is falling through, and brother is possibly getting evicted, and is giving him added stress. Reiterated that he should do intake for rehab, however, patient states he is not sure if he is ready mentally for that, but is still thinking about going. Patient claims that he slept pretty good last night. Patient appears more clear in his speech, and states he's not having any more withdraw symptoms. Patient is eating meals. Patient is going to groups. At this time patient denies any suicidal or homical ideations, intent or plan. Patient endorses auditory hallucinations, states it's not as bad as it was, however, it's still there, like someone is whispering in his ear. denies visual hallucinations and denies any paranoia or delusions. Patient denies any side effects from the medications and has been compliant with meds. Mental Status Exam: General Appearance: Appears stated age, disheveled, average body built, and no specific features. Behavior: Patient is calmly seated without any agitated behavior. Speech: Patient's speech nonpressured, fluent Mood/Affect: Claims his mood is "depressed", .affect is constricted mildly improving Suicidality/Homicidality: Patient denies having any suicidal or homicidal ideation intent or plan. Perceptions: Patient denies any visual hallucinations, endorses auditory hallucinations Though content/process: There is no evidence of any delusional thought content. Memory and concentration: AOX3, improved attention span. Judgment and insight: poor mildly improving Assessment: Delirium, likely secondary to etoh withdrawal. Alcohol use disorder, severe. Depressive disorder unspecified Personality disorder unspecified Nicotine dependence Plan: -Patient continues to meet criteria for inpatient psychiatric admission for symptom stabilization and safety. He is currently voluntary on the unit. Patient has signed adult voluntary form and medication consent and was placed in patient's chart. -Medications: decrease Librium 10 mg 3times a day for alcohol withdrawal symptoms with the plan to taper down. Seroquel 300 mg at bedtime for mood stabilization, psychotic symptoms, and depression. increase Zoloft 100mg qhs for mood/anxiety. naltexone 50mg daily for alcohol cravings. discotninue CIWA protocol thiamine, folic acid, for alcohol use. -When necessary Ativan and Haldol for agitation/aggression. -NRT - nicotine patch -SW on board for discharge planning. Encouraged the patient to participate in milieu. Spoke with patient again about rehab, still is considering that option likely discharge Friday vs Friday.
[2023-09-12] MEDS: MAG HYDROX/AL HYDROX/SIMETH 30 ML CUP PO PRN (11:43)
[2023-09-12] MEDS: PANTOPRAZOLE 40 MG TABLET PO SCH (11:44)
[2023-09-12] MEDS: hydrOXYzine pamoate 25 MG CAP PO PRN (16:13)
[2023-09-12] MEDS: QUEtiapine 100 MG TAB PO SCH (20:33)
[2023-09-13] MEDS: PANTOPRAZOLE 40 MG TABLET PO SCH (09:04)
[2023-09-13] MEDS: NICOTINE 14MG/24HR PATCH TRANSDERM SCH (09:04)
[2023-09-13] MEDS: NALTREXONE HCL 50 MG TAB PO SCH (09:05)
[2023-09-13] MEDS: SERTRALINE 100 MG TAB PO SCH (09:05)
[2023-09-13] MEDS: FOLIC ACID 1 MG TAB PO SCH (09:05)
[2023-09-13] MEDS: THIAMINE 100 MG TAB PO SCH (09:05)
--- NOTE | 2023-09-13 11:15 | P.PN ---
Progress Note - Text Progress Note Date: 09/13/23 Interval history: Patient was seen doing a puzzle in the [facility] and was directable and agreeable to speak with food writer. Patient states that he is still feeling fairly anxious today, continues to state that he is having some withdrawals. We spoke about giving time for the medication to start working. States that he is tolerating medications fairly well. He was requesting to have Ativan today due to a poor interaction today but the staff and also another patient on the unit. He claims he is still feeling somewhat depressed. States that he was able to see better last night, has a fair appetite. At this time patient denies any suicidal or homicidal ideations intent or plan. Denies any Auditory or visual hallucinations. Patient denies any side effects from the medications and has been compliant with meds. Mental status exam: General Appearance: Patient appears to be stated age is alert, directable, and cooperative. Behavior: No agitated behavior. Patient is calm and directable Speech: Patient's speech is fluent and nonpressured. [place] Mood/Affect: Mood is "still depressed", affect is congruent and constricted. Suicidality/Homicidality: Patient denies having any suicidal or homicidal ideation intent or plan. Perceptions: Patient denies any auditory or visual hallucinations. Though content/process: There is no evidence of any delusional thought content and thought process is linear and goal-directed. Focused on medications and his symptoms Memory and concentration: AOX3, grossly intact for the purposes of this session Judgment and insight: improving mildly Assessment/Plan: Continue with current diagnosis. Patient continues to meet criteria for inpatient psychiatric admission for symptom stabilization and safety.Patient will be maintained on current psychotropic medication regimen. Will add a 1 time dose of Ativan today to help with withdrawals. We'll continue decreasing Librium tomorrow. Monitor for medication compliance and for any psychotropic medication side effects. Will continue to monitor ongoing response to treatment. Encouraged participation in milieu.
[2023-09-13] MEDS: IBUPROFEN 600 MG TAB PO PRN ×2 (11:22→20:37)
[2023-09-13] MEDS ORDERED: LORazepam 1 MG TAB PO ONE (11:30)
[2023-09-13] MEDS: LORazepam 1 MG TAB PO PRN ×2 (16:16→21:53)
[2023-09-13] MEDS: QUEtiapine 100 MG TAB PO SCH (20:36)
[2023-09-14 07:25] VITALS: RESP 14
[2023-09-14] MEDS: NICOTINE 14MG/24HR PATCH TRANSDERM SCH (08:58)
[2023-09-14] MEDS: IBUPROFEN 600 MG TAB PO PRN ×3 (08:59→21:16)
[2023-09-14] MEDS: FOLIC ACID 1 MG TAB PO SCH (09:00)
[2023-09-14] MEDS: SERTRALINE 100 MG TAB PO SCH (09:00)
[2023-09-14] MEDS: PANTOPRAZOLE 40 MG TABLET PO SCH (09:00)
[2023-09-14] MEDS: NALTREXONE HCL 50 MG TAB PO SCH (09:00)
[2023-09-14] MEDS: THIAMINE 100 MG TAB PO SCH (09:00)
[2023-09-14] MEDS: LORazepam 1 MG TAB PO PRN ×3 (09:01→21:16)
[2023-09-14] MEDS ORDERED: hydrOXYzine pamoate 25 MG CAP PO PRN (11:36)
--- NOTE | 2023-09-14 11:52 | P.PN ---
Progress Note - Text Progress Note Date: 09/14/23 Interval history: Patient was seen taking part in [place] [facility] [place] directable and agreeable to speak with repairer typewriter. Patient states that he is doing a bit better today. Continues to endorse anxiety, asking about different options for anxiety. He was agreeable to try Seroquel during the day. He states that Ativan has been helping as needed. He continues to be fairly superficial about wanting to go to rehab. He was however focused on possibly being discharged tomorrow. States that he is sleeping fairly and nighttime. Denies any changes in his appetite. Has been going to groups. At this time patient denies any suicidal or homicidal ideations intent or plan. Denies any Auditory or visual hallucinations. Patient denies any side effects from the medications and has been compliant with meds. Mental status exam: General Appearance: Patient appears to be stated age is alert, directable, and cooperative. Behavior: No agitated behavior. Patient is calm and directable Speech: Patient's speech is fluent and nonpressured. [place] Mood/Affect: Mood is "still depressed", affect is congruent and constricted. Suicidality/Homicidality: Patient denies having any suicidal or homicidal ideation intent or plan. Perceptions: Patient denies any auditory or visual hallucinations. Though content/process: There is no evidence of any delusional thought content and thought process is linear and goal-directed. Focused on medications and his symptoms Memory and concentration: AOX3, grossly intact for the purposes of this session Judgment and insight: improving mildly Assessment/Plan: Continue with current diagnosis. Patient continues to meet juan antonio gan for inpatient psychiatric admission for symptom stabilization and safety.Patient will be maintained on current psychotropic medication regimen, with the exception of adding Seroquel 50 mg daily dose for mood stabilization/anxiety. We'll continue decreasing Librium. Monitor for medication compliance and for any psychotropic medication side effects. Will continue to monitor ongoing response to treatment. Encouraged participation in milieu. patient is not likely to go to rehab and will likely be discharge tomorrow vs friday to a friends house.
[2023-09-14] MEDS: QUEtiapine 50 MG TAB PO SCH (11:54)
[2023-09-14] MEDS: ACETAMINOPHEN TAB 325 MG TAB PO PRN (11:56)
[2023-09-14] MEDS: NICOTINE GUM (POLACRILEX) 2 MG GUM BUCCAL PRN ×2 (11:56→17:08)
[2023-09-14] MEDS: QUEtiapine 100 MG TAB PO SCH (20:34)
[2023-09-15 07:39] VITALS: BP 103/56; PULSE 62; TEMP 98
[2023-09-15] MEDS: FOLIC ACID 1 MG TAB PO SCH (08:03)
[2023-09-15] MEDS: THIAMINE 100 MG TAB PO SCH (08:03)
[2023-09-15] MEDS: NALTREXONE HCL 50 MG TAB PO SCH (08:03)
[2023-09-15] MEDS: NICOTINE 14MG/24HR PATCH TRANSDERM SCH (08:03)
[2023-09-15] MEDS: PANTOPRAZOLE 40 MG TABLET PO SCH (08:03)
[2023-09-15] MEDS: SERTRALINE 100 MG TAB PO SCH (08:03)
[2023-09-15] MEDS: QUEtiapine 50 MG TAB PO SCH (08:03)
[2023-09-15] MEDS: LORazepam 1 MG TAB PO PRN (08:04)
[2023-09-15] MEDS: NICOTINE GUM (POLACRILEX) 2 MG GUM BUCCAL PRN (08:54)
[2023-09-15] MEDS: IBUPROFEN 600 MG TAB PO PRN (09:07)
--- NOTE | 2023-09-15 09:34 | P.DS ---
Providers Date of admission: 09/06/23 14:05 Expected date of discharge: 09/15/23 Attending physician: Rommel Ramirez MD Consults: 09/06/23 14:17 Consult Physician Routine Consulting Provider: Gabriel Weaver Consult Reason/Comments: H&P Do you want consulting provider notified?: Yes Primary care physician: Gabriel Weaver - Discharge Diagnosis(es) (1) Depressive disorder Current Visit: Yes Status: Acute Priority: High (2) Alcohol use disorder, severe, dependence Current Visit: Yes Status: Acute Priority: High (3) Personality disorder Current Visit: Yes Status: Acute Priority: Medium (4) Nicotine dependence Current Visit: Yes Status: Acute Priority: Low Hospital Course: Admission HPI: Admission note was completed by Dr Mancera "The patient is a 42 year old male who initially presented to the ED with a chief complaint of suicidal ideation. The patient reported to ED staff that he had suicidal thoughts and the plan, stated that he previously attempted to cut his wrist. The patient admitted for alcohol drinking before he came to the hospital. He denies other drug use. No reports of homicidal ideation. At the time that he came to the hospital, he denies any hallucinations. The patient was hospitalized through this unit last month and discharge few weeks ago when prescriptions LEXAPRO, naltrexone, and Seroquel. The patient has not been taking his psychiatric medications as he reported to the ED staff. The patient was admitted to the inpatient psychiatric unit and started on CIWA monitoring for alcohol withdrawal which trigger giving him the doses of 2 mg Ativan based on CIWA score in the first 8-10 hours of his admission to the psych unit. Nursing staff called this morning and reported the patient presented confused, restless, and to some degree disoriented. Medical team evaluated the patient for risk of DTs, and they didn't consider any current need to transfer the patient to the medical floor. During the evaluation today, the patient was not able to provide any reliable history because of his cognitive impairment and confusion which is most probably related to alcohol withdrawal. The patient was talking about "Angelo" his brother who brought him to the hospital but he couldn't explain the reason why he came to the hospital, and he continues to talk bizarre with nonsensical speech and sometimes pacing around in the exam room with inappropriate behavior as trying to drink might want to or open the cabinet, or looking at the compute. The patient was responding to redirection but he needs frequent redirection. The patient was not able to provide any history but he reports has been hearing and seeing things. When I tried to ask more questions about his mental health or the reported hallucinations, the patient continued to talk nonsensical with bizarre behavior. The patient was talking about he was living with his brother, the dog, and the baby's able brother's son, but he couldn't give any clear answers about why he came to the hospital other than that his brother brought him here. The patient was oriented to person, place, and situation but not oriented to time. He reports that he drinks a few times a week with average 3-4 shots of vodka every time." Hospital course: Upon admission to the unit patient was directable and agreeable to commence treatment and signed adult voluntary form. Patient was initially confused, delirious and bizarre however with time and treatment eventually got along well with other patients on the unit and followed unit protocol. Patient was compliant with the medications and denied any side effects throughout hospital course. Patient was started on his home dose of Seroquel 300 mg daily at bedtime for mood stabilization, and additional daytime dose was added of 50 mg. Zoloft was increased to 100 mg daily at bedtime for mood/anxiety, naltrexone 50 mg by mouth daily for alcohol cravings. Patient was placed on CIWA protocol with when necessary Ativan and also scheduled Librium which was tapered off for severe alcohol withdrawal.. Patient spoke of his stressors and engaged in therapy both group and individual. Patient was also seen by medical team for history and physical exam. Throughout the course of the hospitalization patient gradually improved with regards to mood, anxiety, sleep and returned back to their baseline level of functioning. On the day of discharge patient denied any suicidal or homicidal ideations intent or plan denied any auditory or visual hallucinations. Patient endorsed wanting to live for his health and family. The patient denied any access to guns or weapons. Patient denied any paranoia and did not endorse any delusions. Patient does have a significant history of substance abuse and was counseled on abstaining from all substances including alcohol and marijuana. Patient was fairly hesitant about getting into and going to rehab. He made the call to the access line for an intake date however claims that he will be going to his brother's house instead of waiting on the unit for a direct transfer. Patient elected to do outpatient substance use treatment program through [facility]. Patient was also counseled on the medications and need for regular compliance and was encouraged to follow-up with their outpatient appointment for mental health and also for primary care. Prior to discharge a family meeting will be arranged by health care social worker to answer any questions and ensure safety upon discharge. Mental status exam: General Appearance: Patient appears to be stated age is alert, pleasant, and cooperative. Patient is in no acute distress and has improved hygiene and grooming Behavior: Patient is calmly seated without any agitated behavior. Speech: Patient's speech is fluent and nonpressured. Mood/Affect: Patient reports their mood is "good", affect is congruent and euthymic. Suicidality/Homicidality: Patient denies having any suicidal or homicidal ideation intent or plan. Perceptions: Patient denies any auditory or visual hallucinations. Though content/process: There is no evidence of any delusional thought content and thought process is linear and goal-directed. more future oriented Memory and concentration: AOX3, grossly intact for the purposes of this session. Can spell "WORLD" backwards correctly. Judgment and insight: improved with guarded prognosis Impression: Depressive disorder unspecified Alcohol use disorder, severe. Personality disorder unspecified Nicotine dependence Plan: -Continue with discharge today as patient has improved and stabilized psychiatrically and is not currently an imminent threat to himself and/or others. Patient will remain at chronically elevated risk for harm to self and/or others due to his impulsivity. -Continue medications: Librium was tapered off and discontinued. Patient will be given a 3 day supply of Ativan to help with continued withdrawal symptoms and anxiety when necessary. Seroquel 300 mg daily at bedtime +50 mg daily for mood stabilization/sleep, Zoloft 100 mg daily at bedtime for mood/anxiety, naltrexone 50 mg by mouth daily for alcohol cravings. -Patient was counseled on the need for medication compliance and appropriate follow-up at mental health and also primary care for medical issues. Patient verbalized understanding and agreed. -Social work to arrange for and conduct family meeting to ensure safety upon discharge and answer any questions/concerns. Social work also to arrange for patients follow up appointments with [facility] for psychiatric care along with follow up with primary care provider. -Patient counseled on abstaining from recreational drugs and marijuana and alcohol. Was informed/educated on the adverse effects on their physical and mental health. Patient verbally agreed and understood. Patient claims that he is apparently waiting to get into rehab however we'll be waiting at his brother's house. -Patient was instructed to return to the hospital or seek immediate medical care if their psychiatric or medical symptoms do worsen or reoccur. Allergies Allergy/AdvReac Type Severity Reaction Status Date / Time No Known Allergies Allergy Verified 09/05/23 17:47 Laboratory Results WBC 6.8 k/uL (3.8-10.6) 09/07/23 11:19 RBC 4.00 m/uL (4.30-5.90) L 09/07/23 11:19 Hgb 14.1 gm/dL (13.0-17.5) 09/07/23 11:19 Hct 40.3 % (39.0-53.0) 09/07/23 11:19 MCV 100.7 fL (80.0-100.0) H 09/07/23 11:19 MCH 35.1 pg (25.0-35.0) H 09/07/23 11:19 MCHC 34.9 g/dL (31.0-37.0) 09/07/23 11:19 RDW 17.2 % (11.5-15.5) H 09/07/23 11:19 Plt Count 181 k/uL (150-450) D 09/07/23 11:19 MPV 7.5 09/07/23 11:19 Neutrophils % 83 % 09/07/23 11:19 Lymphocytes % 9 % 09/07/23 11:19 Monocytes % 6 % 09/07/23 11:19 Eosinophils % 1 % 09/07/23 11:19 Basophils % 1 % 09/07/23 11:19 Neutrophils # 5.6 k/uL (1.3-7.7) 09/07/23 11:19 Lymphocytes # 0.6 k/uL (1.0-4.8) L 09/07/23 11:19 Monocytes # 0.4 k/uL (0-1.0) 09/07/23 11:19 Eosinophils # 0.1 k/uL (0-0.7) 09/07/23 11:19 Basophils # 0.1 k/uL (0-0.2) 09/07/23 11:19 Anisocytosis Slight 09/07/23 11:19 Macrocytosis Slight 09/07/23 11:19 Sodium 135 mmol/L (137-145) L 09/07/23 11:19 Potassium 4.1 mmol/L (3.5-5.1) 09/07/23 11:19 Chloride 102 mmol/L (98-107) 09/07/23 11:19 Carbon Dioxide 21 mmol/L (22-30) L 09/07/23 11:19 Anion Gap 12 mmol/L 09/07/23 11:19 BUN 5 mg/dL (9-20) L 09/07/23 11:19 Creatinine 0.76 mg/dL (0.66-1.25) 09/07/23 11:19 Est GFR (CKD-EPI)AfAm >90 (>60 ml/min/1.73 sqM) 09/07/23 11:19 Est GFR (CKD-EPI)NonAf >90 (>60 ml/min/1.73 sqM) 09/07/23 11:19 Glucose 102 mg/dL (74-99) H 09/07/23 11:19 Calcium 9.5 mg/dL (8.4-10.2) 09/07/23 11:19 Total Bilirubin 1.2 mg/dL (0.2-1.3) 09/07/23 11:19 AST 34 U/L (17-59) 09/07/23 11:19 ALT 14 U/L (4-49) 09/07/23 11:19 Alkaline Phosphatase 243 U/L (38-126) H 09/07/23 11:19 Total Protein 7.1 g/dL (6.3-8.2) 09/07/23 11:19 Albumin 4.2 g/dL (3.5-5.0) 09/07/23 11:19 TSH 1.180 mIU/L (0.465-4.680) 09/07/23 11:19 Urine Opiates Screen Not Detected (NotDetected) 09/05/23 18:19 Ur Oxycodone Screen Not Detected (NotDetected) 09/05/23 18:19 Urine Methadone Screen Not Detected (NotDetected) 09/05/23 18:19 Ur Propoxyphene Screen Not Detected (NotDetected) 09/05/23 18:19 Ur Barbiturates Screen Not Detected (NotDetected) 09/05/23 18:19 U Tricyclic Antidepress Not Detected (NotDetected) 09/05/23 18:19 Ur Phencyclidine Scrn Not Detected (NotDetected) 09/05/23 18:19 Ur Amphetamines Screen Not Detected (NotDetected) 09/05/23 18:19 U Methamphetamines Scrn Not Detected (NotDetected) 09/05/23 18:19 U Benzodiazepines Scrn Not Detected (NotDetected) 09/05/23 18:19 Urine Cocaine Screen Not Detected (NotDetected) 09/05/23 18:19 U Marijuana (THC) Screen Not Detected (NotDetected) 09/05/23 18:19 SARS-CoV-2 (PCR) Not Detected (Not Detectd) 09/14/23 21:50 Vital Signs Temp 98 F 09/15/23 06:56 Pulse 62 09/15/23 06:56 Resp 14 09/15/23 06:56 BP 103/56 09/15/23 06:56 Pulse Ox 96 09/10/23 08:11 FiO2 Intake & Output 09/14/23 09/15/23 09/15/23 18:59 06:59 18:59 Weight 83.1 kg Patient Condition at Discharge: Stable Plan - Discharge Summary Discharge Rx Participant: No New Discharge Prescriptions: New Ibuprofen [Motrin] 600 mg PO TID PRN 30 Days #90 tab PRN Reason: Moderate Pain (Scale 4 To 6) Pantoprazole [Protonix] 40 mg PO AC-BRKFST 30 Days #30 tab QUEtiapine [SEROquel] 50 mg PO DAILY 30 Days #30 tab QUEtiapine [SEROquel] 300 mg PO HS 30 Days #90 tab hydrOXYzine pamoate [Vistaril] 50 mg PO BID PRN 15 Days #60 cap PRN Reason: Anxiety Thiamine [Vitamin B-1] 100 mg PO DAILY tab LORazepam [Ativan] 1 mg PO DAILY PRN 3 Days #3 tab PRN Reason: Anxiety Folic Acid 1 mg PO DAILY tab Nicotine 14Mg/24Hr Patch [Habitrol] 1 patch TRANSDERM DAILY 14 Days #14 patch Naltrexone HCl [Revia] 50 mg PO DAILY 30 Days #30 tab Sertraline [Zoloft] 100 mg PO DAILY 30 Days #30 tab Continue Nicotine Gum (Polacrilex) [Nicorette] 2 mg BUCCAL Q4HR PRN pieceofgum PRN Reason: Nicotine Cravings Discontinued Nicotine 14Mg/24Hr Patch [Habitrol] 1 patch TRANSDERM DAILY 14 Days #14 patch Naltrexone HCl [Revia] 50 mg PO DAILY 30 Days #30 tab QUEtiapine [SEROquel] 300 mg PO HS 30 Days #30 tab hydrOXYzine pamoate [Vistaril] 25 mg PO BID PRN 30 Days #60 cap PRN Reason: Anxiety Escitalopram [Lexapro] 20 mg PO DAILY 30 Days #30 tab Ibuprofen [Motrin] 600 mg PO Q6HR PRN tab PRN Reason: Moderate Pain (Scale 4 To 6) Discharge Medication List Nicotine Gum (Polacrilex) [Nicorette] 2 mg BUCCAL Q4HR PRN pieceofgum 08/11/23 [Rx] Folic Acid 1 mg PO DAILY tab 09/15/23 [Rx] Ibuprofen [Motrin] 600 mg PO TID PRN 30 Days #90 tab 09/15/23 [Rx] LORazepam [Ativan] 1 mg PO DAILY PRN 3 Days #3 tab 09/15/23 [Rx] Naltrexone HCl [Revia] 50 mg PO DAILY 30 Days #30 tab 09/15/23 [Rx] Nicotine 14Mg/24Hr Patch [Habitrol] 1 patch TRANSDERM DAILY 14 Days #14 patch 09/15/23 [Rx] Pantoprazole [Protonix] 40 mg PO AC-BRKFST 30 Days #30 tab 09/15/23 [Rx] QUEtiapine [SEROquel] 50 mg PO DAILY 30 Days #30 tab 09/15/23 [Rx] QUEtiapine [SEROquel] 300 mg PO HS 30 Days #90 tab 09/15/23 [Rx] Sertraline [Zoloft] 100 mg PO DAILY 30 Days #30 tab 09/15/23 [Rx] Thiamine [Vitamin B-1] 100 mg PO DAILY tab 09/15/23 [Rx] hydrOXYzine pamoate [Vistaril] 50 mg PO BID PRN 15 Days #60 cap 09/15/23 [Rx] Follow up Appointment(s)/Referral(s): Gabriel Weaver MD [Primary Care Provider] - 1-2 days Activity/Diet/Wound Care/Special Instructions: Avoid the use of street drugs and alcohol. Take all medications as prescribed. When you are in need of refills on your medications, please contact your medical provider and/or outpatient psychiatrist/provider to have this done. Please go to your scheduled outpatient appointment for aftercare treatment. If symptoms return or become worse, call the crisis line at and/or go to the nearest emergency room for evaluation. National Suicide Hotline 988. Discharge/Stand Alone Forms: AA Meetings [facility] Discharge Disposition: HOME SELF-CARE
== END 2023-09-15 10:24 | disposition home or self-care (01) | DRG 754 ==
LOC: EC 15:34 → 3MHU 09-06 14:05
PROVIDERS: ADMIT Psychiatry & Neurology Psychiatry; ATTEND Psychiatry & Neurology Psychiatry
DX: F32.A Depression, unspecified (principal); F10.239 Alcohol dependence with withdrawal, unspecified; F17.200 Nicotine dependence, unspecified, uncomplicated; F20.9 Schizophrenia, unspecified; R45.851 Suicidal ideations; S61.519A Laceration without foreign body of unspecified wrist, initial encounter; Z59.00 Homelessness unspecified; Z79.899 Other long term (current) drug therapy; Z91.51 Personal history of suicidal behavior; Z11.52 Encounter for screening for COVID-19
CPT/HCPCS: 80053; 80306; 82075; 84443; 85025; 87635; 99285

== ENCOUNTER 2023-09-19 20:14 | Emergency (ER) | payer OTHER ==
--- NOTE | 2023-09-19 21:18 | ED ---
General Adult HPI - General Source: patient, police, RN notes reviewed, old records reviewed Mode of arrival: ambulatory Limitations: no limitations <Kareem Baez - Last Filed: 09/19/23 21:16> <Migel Dela Cruz - Last Filed: 09/20/23 14:05> - General Chief complaint: Psychiatric Symptoms Stated complaint: Mental Health Time Seen by Provider: 09/19/23 20:49 - History of Present Illness Initial comments: 42 old male with alcohol intoxication, suicidal ideation, increased depression. Patient brought in by local police, has been petitioned for psychiatric evaluation. Patient reluctant to give a detailed history. He is intoxicated upon arrival without physical complaint. He states he does not want to live anymore. (Kareem Baez) - Related Data Previous Rx's Medication Instructions Recorded Nicotine Gum (Polacrilex) 2 mg BUCCAL Q4HR PRN pieceofgum 08/11/23 [Nicorette] Folic Acid 1 mg PO DAILY tab 09/15/23 Ibuprofen [Motrin] 600 mg PO TID PRN 30 Days #90 tab 09/15/23 LORazepam [Ativan] 1 mg PO DAILY PRN 3 Days #3 tab 09/15/23 Naltrexone HCl [Revia] 50 mg PO DAILY 30 Days #30 tab 09/15/23 Nicotine 14Mg/24Hr Patch [Habitrol] 1 patch TRANSDERM DAILY 14 Days 09/15/23 #14 patch Pantoprazole [Protonix] 40 mg PO AC-BRKFST 30 Days #30 tab 09/15/23 QUEtiapine [SEROquel] 50 mg PO DAILY 30 Days #30 tab 09/15/23 QUEtiapine [SEROquel] 300 mg PO HS 30 Days #90 tab 09/15/23 Sertraline [Zoloft] 100 mg PO DAILY 30 Days #30 tab 09/15/23 Thiamine [Vitamin B-1] 100 mg PO DAILY tab 09/15/23 hydrOXYzine pamoate [Vistaril] 50 mg PO BID PRN 15 Days #60 cap 09/15/23 Allergies Allergy/AdvReac Type Severity Reaction Status Date / Time No Known Allergies Allergy Verified 09/19/23 22:38 Review of Systems ROS Other: All systems not noted in ROS Statement are negative. <Kareem Baez - Last Filed: 09/19/23 21:16> ROS Other: All systems not noted in ROS Statement are negative. <Migel Dela Cruz - Last Filed: 09/20/23 14:05> ROS Statement: Those systems with pertinent positive or pertinent negative responses have been documented in the HPI. Past Medical History Past Medical History: Asthma Additional Past Medical History / Comment(s): pancreatisis, asthma History of Any Multi-Drug Resistant Organisms: None Reported Additional Past Surgical History / Comment(s): wrist surgery Past Anesthesia/Blood Transfusion Reactions: No Reported Reaction Past Psychological History: Anxiety, Depression Smoking Status: Current every day smoker Past Alcohol Use History: Occasional Past Drug Use History: None Reported <Kareem Baez - Last Filed: 09/19/23 21:16> General Exam Limitations: no limitations General appearance: alert, appears intoxicated Head exam: Present: atraumatic, normocephalic Eye exam: Present: normal appearance, PERRL ENT exam: Present: mucous membranes dry Neck exam: Present: normal inspection Respiratory exam: Present: normal lung sounds bilaterally. Absent: respiratory distress, wheezes Cardiovascular Exam: Present: regular rate, normal rhythm GI/Abdominal exam: Present: soft. Absent: distended, tenderness, guarding Extremities exam: Present: normal inspection, normal capillary refill Psychiatric exam: Present: depressed, suicidal ideation Skin exam: Present: warm, dry, intact <Kareem Baez - Last Filed: 09/19/23 21:16> Course Vital Signs 09/19/23 09/20/23 09/20/23 20:25 02:53 10:00 Temperature 98.7 F 98.0 F Pulse Rate 64 80 75 Respiratory 18 17 18 Rate Blood Pressure 101/62 107/69 102/64 O2 Sat by Pulse 95 94 L 98 Oximetry Medical Decision Making <Kareem Baez - Last Filed: 09/19/23 21:16> <Migel Dela Cruz - Last Filed: 09/20/23 14:05> - Medical Decision Making Was pt. sent in by a medical professional or institution (, PA, [employer], urgent care, hospital, or skilled nursing...) When possible be specific @ -[No] Did you speak to anyone other than the patient for history (EMS, parent, family, police, friend...)? What history was obtained from this source @ -[No] Did you review nursing and triage notes (agree or disagree)? Why? @ -[I reviewed and agree with nursing and triage notes] Were old charts reviewed (outside hosp., previous admission, EMS record, old EKG, old radiological studies, urgent care reports/EKG's, skilled nursing records)? Report findings @ -[No old charts were reviewed] Differential Diagnosis (chest pain, altered mental status, abdominal pain women, abdominal pain men, vaginal bleeding, weakness, fever, dyspnea, syncope, headache, dizziness, GI bleed, back pain, seizure, CVA, palpatations, mental health, musculoskeletal)? @ Differential Mental Health Depression, anxiety, bipolar, psychosis, schizophrenia, borderline personality, situational depression, adjustment disorder, behavioral disorder, brain tumor, malingering, substance abuse, encephalopathy, medication reaction, dementia, hypothyroidism, degenerative neurologic disorder, lupus.... This is not meant to be all-inclusive list EKG interpreted by me (3pts min.). @ -[As above] X-rays interpreted by me (1pt min.). @ -[None done] CT interpreted by me (1pt min.). @ -[None done] U/S interpreted by me (1pt. min.). @ -[None done] What testing was considered but not performed or refused? (CT, X-rays, U/S, labs)? Why? @ -[None] What meds were considered but not given or refused? Why? @ -[None] Did you discuss the management of the patient with other professionals (professionals i.e. , PA, [employer], lab, RT, psych nurse, social work supervisor, helper coordinator, teacher, special officer, business case analyst)? Give summary @ -[No] Was smoking cessation discussed for >3mins.? @ -[No] Was critical care preformed (if so, how long)? @ -[No] Were there social determinants of health that impacted care today? How? (Homelessness, low income, unemployed, alcoholism, drug addiction, transportation, low edu. Level, literacy, decrease access to med. care, snf, rehab)? @ -[No] Was there de-escalation of care discussed even if they declined (Discuss DNR or withdrawal of care, Hospice)? DNR status @ -[No] What co-morbidities impacted this encounter? (DM, HTN, Smoking, COPD, CAD, Cancer, CVA, ARF, Chemo, Hep., AIDS, mental health diagnosis, sleep apnea, morbid obesity)? @ -Depression, alcohol abuse Was patient admitted / discharged? Hospital course, mention meds given and route, prescriptions, significant lab abnormalities, going to OR and other pertinent info. @ -42-year-old male with suicidal ideation, depression, alcohol abuse. Patient is intoxicated upon arrival. Will await sobriety and then the patient will be evaluated by EPS. (Kareem Baez) Case discussed with mental health nurse who is familiar with this patient and a fter speaking with psychiatrist they do recommend discharge. I did reevaluate patient. Patient admits to chronic depression and problems with alcohol. No suicidal ideation at this time. Patient will be discharged and recommended follow-up with rehab. Patient states he has been this recently but agreeable to do so again. Diagnosis: Alcohol intoxication, depression Acute on chronic, acute on chronic (Migel Dela Cruz) - Lab Data Lab Results 09/20/23 Range/Units 07:02 Urine Opiates Screen Not Detected (NotDetected) Ur Oxycodone Screen Not Detected (NotDetected) Urine Methadone Screen Not Detected (NotDetected) Ur Barbiturates Screen Not Detected (NotDetected) U Tricyclic Antidepress Detected H (NotDetected) Ur Phencyclidine Scrn Not Detected (NotDetected) Ur Amphetamines Screen Not Detected (NotDetected) U Methamphetamines Scrn Not Detected (NotDetected) U Benzodiazepines Scrn Detected H (NotDetected) Urine Cocaine Screen Not Detected (NotDetected) U Marijuana (THC) Screen Not Detected (NotDetected) Ur Drug Screen Comment SEE COMMENT Disposition <Kareem Baez - Last Filed: 09/19/23 21:16> Is patient prescribed a controlled substance at d/c from ED?: No Time of Disposition: 14:05 <Migel Dela Cruz - Last Filed: 09/20/23 14:05> Clinical Impression: Depression, Alcohol intoxication, Alcohol use disorder Disposition: HOME SELF-CARE Condition: Stable Instructions (If sedation given, give patient instructions): Alcohol Intoxication (ED), Alcohol Dependence (ED), Depression (ED) Additional Instructions: Follow-up with alcohol counseling such as [place] or alcoholic [facility] or others, number provided. Please follow-up to primary care physician in the next one or 2 days for recheck and mental health services as directed. Return for thoughts of self-harm, worsening symptoms or other concerns. Discontinue alcohol use. Referrals: Gabriel Weaver MD [Primary Care Provider] - 1-2 days Forms: AA Meetings [facility], [facility] - [facility], In Substance Abuse Facilities, Outpatient Counseling
[2023-09-20] MEDS ORDERED: IBUPROFEN 400 MG TAB PO STA (02:01)
[2023-09-20] MEDS ORDERED: LORazepam 1 MG TAB PO PRN (02:40)
[2023-09-20] MEDS ORDERED: hydrOXYzine pamoate 25 MG CAP PO PRN (02:40)
[2023-09-20] MEDS ORDERED: QUEtiapine 50 MG TAB PO SCH ×2 (02:45→09:00)
[2023-09-20] MEDS ORDERED: QUEtiapine 100 MG TAB PO SCH (02:45)
[2023-09-20 07:47] LABS: Amphetamine Screen,Urine Not Detected (NotDetected); Barbiturate Screen,Urine Not Detected (NotDetected); Benzodiazepines Screen,Urine Detected (NotDetected); Cocaine Screen,Urine Not Detected (NotDetected); Methadone Screen, Urine Not Detected (NotDetected); Opiate Screen,Urine Not Detected (NotDetected); Oxycodone Screen, Urine Not Detected (NotDetected); Phencyclidine Screen,Urine Not Detected (NotDetected); Tricyclic Antidepressant,Urine Detected (NotDetected); Urn Cannabinoid Scrn Not Detected (NotDetected)
[2023-09-20 10:20] VITALS: BP 102/64; PULSE 75; RESP 18; TEMP 98
== END 2023-09-20 14:57 | disposition home or self-care (01) ==
LOC: EC 20:14
DX: F32.A Depression, unspecified (principal); F10.129 Alcohol abuse with intoxication, unspecified; J45.909 Unspecified asthma, uncomplicated; F17.200 Nicotine dependence, unspecified, uncomplicated
CPT/HCPCS: 80306; 82075; 99285

== ENCOUNTER 2023-10-02 03:56 | Emergency (ER) | payer OTHER ==
--- NOTE | 2023-10-02 05:31 | ED ---
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) Previous Visits for Alcohol Intoxication?: Yes Recent Trauma: Yes Associated Symptoms: denies other symptoms Treatments Prior to Arrival: none Chronic Alcohol Use: Yes <Dar Barron - Last Filed: 10/02/23 06:18> <Migel Dela Cruz - Last Filed: 10/02/23 13:28> - General Chief Complaint: Alcohol Stated Complaint: ETOH Time Seen by Provider: 10/02/23 04:10 - History of Present Illness Initial Comments: This is a 42-year-old male significantly intoxicated somnolent here in the ER responding history of secondary to severely intoxicated state, patient was known did drink 12 shots of alcohol prior to arrival (Dar Barron) - Related Data Previous Rx's Medication Instructions Recorded Nicotine Gum (Polacrilex) 2 mg BUCCAL Q4HR PRN pieceofgum 08/11/23 [Nicorette] Folic Acid 1 mg PO DAILY tab 09/15/23 Ibuprofen [Motrin] 600 mg PO TID PRN 30 Days #90 tab 09/15/23 LORazepam [Ativan] 1 mg PO DAILY PRN 3 Days #3 tab 09/15/23 Naltrexone HCl [Revia] 50 mg PO DAILY 30 Days #30 tab 09/15/23 Nicotine 14Mg/24Hr Patch [Habitrol] 1 patch TRANSDERM DAILY 14 Days 09/15/23 #14 patch Pantoprazole [Protonix] 40 mg PO AC-BRKFST 30 Days #30 tab 09/15/23 QUEtiapine [SEROquel] 50 mg PO DAILY 30 Days #30 tab 09/15/23 QUEtiapine [SEROquel] 300 mg PO HS 30 Days #90 tab 09/15/23 Sertraline [Zoloft] 100 mg PO DAILY 30 Days #30 tab 09/15/23 Thiamine [Vitamin B-1] 100 mg PO DAILY tab 09/15/23 hydrOXYzine pamoate [Vistaril] 50 mg PO BID PRN 15 Days #60 cap 09/15/23 Allergies Allergy/AdvReac Type Severity Reaction Status Date / Time No Known Allergies Allergy Verified 10/02/23 08:18 Review of Systems ROS Other: All systems not noted in ROS Statement are negative. <Dar Barron - Last Filed: 10/02/23 06:18> ROS Other: All systems not noted in ROS Statement are negative. <Migel Dela Cruz - Last Filed: 10/02/23 13:28> ROS Statement: Those systems with pertinent positive or pertinent negative responses have been documented in the HPI. Past Medical History Past Medical History: Asthma Additional Past Medical History / Comment(s): pancreatisis, asthma History of Any Multi-Drug Resistant Organisms: None Reported Additional Past Surgical History / Comment(s): wrist surgery Past Anesthesia/Blood Transfusion Reactions: No Reported Reaction Past Psychological History: Anxiety, Depression Smoking Status: Current every day smoker Past Alcohol Use History: Occasional Past Drug Use History: None Reported <Dar Barron - Last Filed: 10/02/23 06:18> General Exam Limitations: altered mental status General appearance: appears intoxicated, anxious Head exam: Present: atraumatic, normocephalic, normal inspection Eye exam: Present: normal appearance, PERRL, EOMI. Absent: scleral icterus, conjunctival injection, periorbital swelling ENT exam: Present: normal exam, mucous membranes moist Neck exam: Present: normal inspection. Absent: tenderness, meningismus, lymphadenopathy Respiratory exam: Present: normal lung sounds bilaterally. Absent: respiratory distress, wheezes, rales, rhonchi, stridor Cardiovascular Exam: Present: regular rate, normal rhythm, normal heart sounds. Absent: systolic murmur, diastolic murmur, rubs, gallop, clicks GI/Abdominal exam: Present: soft, normal bowel sounds. Absent: distended, tenderness, guarding, rebound, rigid Extremities exam: Present: normal inspection, full ROM, normal capillary refill. Absent: tenderness, pedal edema, joint swelling, calf tenderness Back exam: Present: normal inspection Neurological exam: Present: alert, oriented X3, CN II-XII intact Psychiatric exam: Present: normal affect, normal mood Skin exam: Present: warm, dry, intact, normal color. Absent: rash <Dar Barron - Last Filed: 10/02/23 06:18> Course <Dar Barron - Last Filed: 10/02/23 06:18> Vital Signs 10/02/23 10/02/23 10/02/23 04:11 04:18 05:14 Temperature 97.5 F L Pulse Rate 84 69 Respiratory 18 18 Rate Blood Pressure 87/60 86/55 O2 Sat by Pulse 97 96 Oximetry 10/02/23 10/02/23 06:46 07:51 Temperature 98.8 F Pulse Rate 93 85 Respiratory 18 16 Rate Blood Pressure 125/85 103/76 O2 Sat by Pulse 96 98 Oximetry - Reevaluation(s) Reevaluation #4: 10/02/23 06:18 Was pt. sent in by a medical professional or institution (, SAE, DIRECTOR OF ARCHIVES, urgent care, hospital, or [facility]...) When possible be specific @ -no Did you speak to anyone other than the patient for history (EMS, parent, family, police, friend...)? What history was obtained from this source @ -no Did you review nursing and triage notes (agree or disagree)? Why? @ -agree Are old charts reviewed (outside hosp., previous admission, EMS record, old EKG, old radiological studies, urgent care reports/EKG's, [facility] records)? Report findings @ -yes Differential Diagnosis (chest pain, altered mental status, abdominal pain women, abdominal pain men, vaginal bleeding, weakness, fever, dyspnea, syncope, headache, dizziness, GI bleed, back pain, seizure, CVA, palpatations, mental health, musculoskeletal)? @ -prior EKG interpreted by me (3pts min.). @ -yes X-rays interpreted by me (1pt min.). @ -yes CT interpreted by me (1pt min.). @ -no U/S interpreted by me (1pt. min.). @ -no What testing was considered but not performed or refused? (CT, X-rays, U/S, labs)? Why? @ -none What meds were considered but not given or refused? Why? @ -none Did you discuss the management of the patient with other professionals (professionals i.e. SAE Rowley, DIRECTOR OF ARCHIVES, lab, RT, psych nurse, social service agency director, asphalt worker, teacher, nursing officer, dependency case manager)? Give summary @ -no Was smoking cessation discussed for >3mins.? @ -no Was critical care preformed (if so, how long)? @ -no Were there social determinants of health that impacted care today? How? (Homelessness, low income, unemployed, alcoholism, drug addiction, transportation, low edu. Level, literacy, decrease access to med. care, senior care, rehab)? @ -none Was there de-escalation of care discussed even if they declined (Discuss DNR or withdrawal of care, Hospice)? DNR status @ -no What co-morbidities impacted this encounter? (DM, HTN, Smoking, COPD, CAD, Cancer, CVA, ARF, Chemo, Hep., AIDS, mental health diagnosis, sleep apnea, morbid obesity)? @ -none Was patient admitted / discharged? Hospital course, mention meds given and route, prescriptions, significant lab abnormalities, going to OR and other pertinent info. @ - Undiagnosed new problem with uncertain prognosis? @ -no Drug Therapy requiring intensive monitoring for toxicity (Heparin, Nitro, Insulin, Cardizem)? @ -no Were any procedures done? @ -no Diagnosis/symptom? @ - Acute, or Chronic, or Acute on Chronic? @ -Acute Uncomplicated (without systemic symptoms) or Complicated (systemic symptoms)? @ -Complicated Side effects of treatment? @ -no Exacerbation, Progression, or Severe Exacerbation? @ -exacerbation Poses a threat to life or bodily function? How? (Chest pain, [place], [place], pneumonia, PE, COPD, DKA, ARF, appy, cholecystitis, CVA, Diverticulitis, Homicidal, Suicidal, threat to staff... and all critical care pts) @ -yes (Dar Barron) Medical Decision Making <Migel Dela Cruz - Last Filed: 10/02/23 13:28> - Medical Decision Making Patient reevaluated by myself, Dr. Dela Cruz. Patient requesting discharge home. Patient better without complaint. Patient updated. Steady gait. (Migel Dela Cruz) Disposition <Dar Barron - Last Filed: 10/02/23 06:18> Is patient prescribed a controlled substance at d/c from ED?: No Time of Disposition: 13:28 <Migel Dela Cruz - Last Filed: 10/02/23 13:28> Clinical Impression: Alcohol intoxication Disposition: HOME SELF-CARE Condition: Stable Instructions (If sedation given, give patient instructions): Alcohol Intoxication (ED) Additional Instructions: Discontinue alcohol use. Please do follow-up with primary care physician in the next day or 2 for recheck. Return for vomiting, confusion, weakness, worsening change in symptoms or other concerns. Referrals: Gabriel Weaver MD [Primary Care Provider] - 1-2 days
[2023-10-02 08:14] VITALS: RESP 16
[2023-10-02 14:12] VITALS: BP 128/78; PULSE 67; TEMP 98.2
== END 2023-10-02 13:44 | disposition home or self-care (01) ==
LOC: EC 03:56
DX: F10.129 Alcohol abuse with intoxication, unspecified (principal); J45.909 Unspecified asthma, uncomplicated; F17.200 Nicotine dependence, unspecified, uncomplicated; Z86.59 Personal history of other mental and behavioral disorders
CPT/HCPCS: 99284

== ENCOUNTER 2023-12-08 16:17 | Emergency (ER) | payer OTHER ==
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
[2023-12-08 17:06] LABS: Basophils # (A) 0.1 k/uL (0-0.2); Basophils % (A) 1 %; Eosinophils % (A) 0 %; HCT 39.9 % (39.0-53.0); Lymphocytes # (A) 1.6 k/uL (1.0-4.8); Lymphocytes % (A) 17 %; MCH 31.7 pg (25.0-35.0); MCHC 35.2 g/dL (31.0-37.0); Mean Platelet Volume 7.3; Monocytes # (A) 1.2 k/uL (0-1.0); Monocytes % (A) 13 %; Neutrophils # (A) 6.3 k/uL (1.3-7.7); Neutrophils % (A) 68 %; Platelet Count 283 k/uL (150-450); RBC 4.43 m/uL (4.30-5.90); RDW 13.2 % (11.5-15.5); WBC 9.3 k/uL (3.8-10.6)
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
[2023-12-08 17:45] LABS: African American GFR (CKD) >90 (>60 ml/min/1.73 sqM); Anion Gap 13 mmol/L; Blood Urea Nitrogen 5 mg/dL (9-20); Carbon Dioxide 23 mmol/L (22-30); Chloride 107 mmol/L (98-107); Glucose 104 mg/dL (74-99); Non-African American GFR(CKD) >90 (>60 ml/min/1.73 sqM); Potassium 3.3 mmol/L (3.5-5.1); Sodium 143 mmol/L (137-145)
[2023-12-08 18:25] VITALS: PULSE 100; RESP 18
[2023-12-08 18:54] LABS: Amphetamine Screen,Urine Not Detected (NotDetected); Barbiturate Screen,Urine Not Detected (NotDetected); Benzodiazepines Screen,Urine Not Detected (NotDetected); Cocaine Screen,Urine Not Detected (NotDetected); Methadone Screen, Urine Not Detected (NotDetected); Opiate Screen,Urine Not Detected (NotDetected); Oxycodone Screen, Urine Not Detected (NotDetected); Phencyclidine Screen,Urine Not Detected (NotDetected); Tricyclic Antidepressant,Urine Not Detected (NotDetected); Urn Cannabinoid Scrn Not Detected (NotDetected)
[2023-12-08] MEDS: HYDROcodone/APAP 5-325MG 1 EACH TAB PO STA (21:31)
[2023-12-09] MEDS: LORazepam 1 MG TAB PO STA (01:32)
[2023-12-09] MEDS: LORazepam 1 MG TAB PO SCH (01:41)
[2023-12-09] MEDS: QUEtiapine 100 MG TAB PO SCH (01:41)
[2023-12-09 06:23] VITALS: BP 124/73; TEMP 98.2
[2023-12-09] MEDS: NALTREXONE HCL 50 MG TAB PO SCH (09:06)
[2023-12-09] MEDS: hydrOXYzine pamoate 25 MG CAP PO SCH (09:07)
[2023-12-09] MEDS: QUEtiapine 50 MG TAB PO SCH (09:07)
[2023-12-09] MEDS: SERTRALINE 100 MG TAB PO SCH (09:07)
== END 2023-12-09 11:42 | disposition home or self-care (01) ==
LOC: EC 16:17
DX: Z00.8 Encounter for other general examination (principal); T23.002A Burn of unspecified degree of left hand, unspecified site, initial encounter; T25.029A Burn of unspecified degree of unspecified foot, initial encounter; T21.22XA Burn of second degree of abdominal wall, initial encounter; F10.129 Alcohol abuse with intoxication, unspecified; I44.30 Unspecified atrioventricular block; F17.200 Nicotine dependence, unspecified, uncomplicated; Y90.8 Blood alcohol level of 240 mg/100 ml or more
CPT/HCPCS: 82075; 36415; 93005; 80048; 85025; 80306; 71046; 99285; G0480; 80320